=== PATIENT | male | born 1990 | race Caucasian/White ===

== ENCOUNTER → 2020-08-07 08:21 | Outpatient (BNVA) | payer MEDICAID, SELFPAY ==
--- NOTE | 2020-08-07 | FL_ITS ---
EXAMINATION: XR FLUOROSCOPY CLINICAL INFORMATION: Lumbosacral spondylosis with radiculopathy. COMPARISON: MRI dated 06/20/2020. TECHNIQUE: Multiple intraoperative spot images were obtained as part of the lumbar procedure. FLUOROSCOPY TIME: 0.7 minutes. DOSE AREA PRODUCT: 6.7 Gy-cm2 (rdz-centimeter squared). FINDINGS/IMPRESSION: Transitional anatomy is evident at the lumbosacral junction. [place] were placed at the left L4-L5 and L5-S1 foramina. Contrast material is evident at both locations, indicating the site of the nerve blocks/transforaminal injections.
== END ==
PROVIDERS: PCP Internal Medicine; Visit Provider Anesthesiology
DX: M47.27 Other spondylosis with radiculopathy, lumbosacral region (principal)
CPT/HCPCS: 64483; 64484; J3300; Q9967

== ENCOUNTER → 2021-04-17 14:58 | Outpatient (BNVA) | payer MEDICAID, SELFPAY | PROVIDERS: PCP Internal Medicine; Visit Provider Anesthesiology | DX: M47.27 Other spondylosis with radiculopathy, lumbosacral region (principal); M79.18 Myalgia, other site; E66.01 Morbid (severe) obesity due to excess calories | CPT/HCPCS: 99212 ==

== ENCOUNTER 2021-04-24 12:03 | Outpatient (REF) | payer OTHER, MEDICAID, SELFPAY ==
[2021-04-24 14:36] LABS: Alanine Aminotransferase 69 U/L (0-40); Alkaline Phosphatase 64 U/L (39-117); Anion Gap 13 (12-20); Aspartate Amino Transferase 46 U/L (5-37); Bilirubin Total 0.5 mg/dL (0.0-1.0); Blood Urea Nitrogen 15 mg/dL (9-16); Calcium 10.2 mg/dL (8.4-10.2); Carbon Dioxide 27 mmol/L (22-29); Chloride 108 mmol/L (96-108); Cholesterol 204 mg/dL; Estimated Glomerular Filt Rate > 60; Glucose Fasting 118 mg/dL (60-99); HDL Cholesterol 42 mg/dL; LDL Cholesterol Calculated 112 mg/dl; Potassium 4.1 mmol/L (3.3-5.1); Sodium 144 mmol/L (135-145); Total Protein 7.7 g/dL (6.5-8.0); Triglycerides 251 mg/dL
[2021-04-24 15:05] LABS: Vitamin B12 908 pg/mL (200-900)
== END 2021-04-24 12:04 | disposition home or self-care (01) ==
LOC: HO.HMGCLDS 12:03
PROVIDERS: PCP Internal Medicine; Visit Provider Internal Medicine
DX: Z00.00 Encounter for general adult medical examination without abnormal findings (principal); E53.8 Deficiency of other specified B group vitamins; E66.01 Morbid (severe) obesity due to excess calories
CPT/HCPCS: 36415; 80053; 80061; 82607

== ENCOUNTER 2023-01-26 10:37 | Outpatient (REF) | payer BC, MEDICAID, SELFPAY ==
[2023-01-26 13:44] LABS: MANUAL DIFF FLAG NO
[2023-01-26 13:55] LABS: Basophils Percent Auto 0.7 % (0-2); Eosinophils Absolute Auto 0.3 X10*3/uL (0.0-0.4); Eosinophils Percent Auto 4.3 % (0-4); Hematocrit 45.1 % (42.0-52.0); Hemoglobin 15.6 g/dl (14.0-18.0); Imm Gran Abs Auto 0.03 X10*3/uL (0.00-0.03); Imm Gran Pct Auto 0.5 % (0.0-0.4); Lymphocytes Absolute Auto 1.9 X10*3/uL (1.2-4.9); Mean Corpuscular HGB Conc 34.6 g/dl (31.0-36.0); Mean Corpuscular Hemoglobin 29.7 pg (27.0-33.0); Mean Corpuscular Volume 85.7 fL (80.0-98.0); Mean Platelet Volume 10.4 fL (9.4-12.4); Monocytes Absolute Auto 0.4 X10*3/uL (0.1-1.2); Monocytes Percent Auto 7.1 % (2-11); Neutrophils Absolute Auto 3.4 x10*3/uL (2.0-8.3); Neutrophils Percent Auto 56.4 % (45-73); Platelet Count 180 X10*3/uL (160-400); Red Blood Count 5.26 X10*6/uL (4.60-5.80); Red Cell Distribution Width 12.1 % (11.0-16.0); White Blood Count 6.1 X10*3/uL (4.8-10.8)
[2023-01-26 14:09] LABS: Estimated Average Glucose 134 mg/dL; Hemoglobin A1c % 6.3 %
[2023-01-26 14:21] LABS: Alanine Aminotransferase 148 U/L (0-40); Albumin Level 4.4 g/dL (3.5-5.0); Alkaline Phosphatase 70 U/L (39-117); Anion Gap 13 (12-20); Aspartate Amino Transferase 84 U/L (5-37); Bilirubin Total 0.7 mg/dL (0.0-1.0); Blood Urea Nitrogen 12 mg/dL (9-16); Calcium 9.3 mg/dL (8.4-10.2); Carbon Dioxide 28 mmol/L (22-29); Chloride 105 mmol/L (96-108); Cholesterol 205 mg/dL; Estimated Glomerular Filt Rate > 60; Glucose Fasting 112 mg/dL (60-99); HDL Cholesterol 40 mg/dL; LDL Cholesterol Calculated 119 mg/dl; Potassium 4.1 mmol/L (3.3-5.1); Sodium 142 mmol/L (135-145); Total Protein 6.9 g/dL (6.5-8.0); Triglycerides 231 mg/dL
[2023-01-26 14:53] LABS: Folate 8.4 ng/mL (> or = 4.0); Vitamin B12 442 pg/mL (200-900)
[2023-01-26 15:45] LABS: Creatinine Urine 136.25 mg/dL; Microalbum/Creatinine Ratio Ur 98.3 ug/mg cr
== END 2023-01-26 10:38 | disposition home or self-care (01) ==
LOC: HO.HMGCLDS 10:37
PROVIDERS: PCP Internal Medicine; Visit Provider Internal Medicine
DX: Z00.00 Encounter for general adult medical examination without abnormal findings (principal); R73.9 Hyperglycemia, unspecified; E53.8 Deficiency of other specified B group vitamins; K21.9 Gastro-esophageal reflux disease without esophagitis
CPT/HCPCS: 36415; 80053; 80061; 82043; 82607; 82746; 83036; 84443; 85025

== ENCOUNTER → 2023-03-02 13:47 | Outpatient (BNVA) | payer MEDICAID, SELFPAY | PROVIDERS: PCP Internal Medicine; Visit Provider Nurse Practitioner Family | DX: Z12.11 Encounter for screening for malignant neoplasm of colon (principal); K21.9 Gastro-esophageal reflux disease without esophagitis; Z90.49 Acquired absence of other specified parts of digestive tract; Z86.010 Personal history of colon polyps | CPT/HCPCS: 99202 ==

== ENCOUNTER 2023-09-08 10:57 | Outpatient (AMB) | payer OTHER, SELFPAY ==
--- NOTE | 2023-09-08 10:59 | MHC.OFFVIS ---
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 Required: No Accompanied by: Self / Same As Patient Allergies No Known Allergies [No Known Allergies*] Allergy (Verified 09/08/23 11:52) Medication List - Last Reconciled 09/08/23 by CHRISTOPHER Prabhakar- bisacodyl (Dulcolax (bisacodyl)) 10 mg (2 x 5 mg) PO BEDTIME blood sugar diagnostic (Freestyle [employer] Test Strips) test blood sugar twice a day blood-glucose meter (Freestyle [employer] meter) As directed bupropion HCl 75 mg PO QAM clonidine HCl 0.3 mg PO BEDTIME PRN clotrimazole-betamethasone 1-0.05 % 1 appl topical BID 4 weeks cyclobenzaprine 5 mg PO DAILY PRN fluvoxamine 100 mg PO BEDTIME gabapentin 300 mg PO BEDTIME methylphenidate HCl ER mg PO omeprazole 40 mg PO DAILY trazodone 200 mg PO BEDTIME PRN HPI HPI Comments History of Present Illness Details Ildefonso is a very pleasant 33-year-old male patient of Dr. Huerta. He has a past medical history of obesity, restless leg syndrome, chronic pain syndrome, non alcoholic fatty liver, sleep apnea, vitamin-D deficiency, mixed irritable bowel syndrome, current smoker, Asperger's syndrome, pervasive developmental disorder, and GERD. He presents to the office today as a new patient for phimosis. In discussion with the patient today he reports to be doing and feeling well. He reports having followed-up with PCP regarding ongoing issues with phimosis at which time recommendations were made for urology referral for further assess evaluation. In assessment of the patient today patient is circumcised. Penis appears buried however prepuce is able to be retracted over penile gland without difficulty and or pain. No drainage and or open areas noted. Discussed importance of weight loss to assist with phimosis given patient with a history of circumcision as a baby. In office urinalysis results reviewed with the patient today. Microscopic hematuria and proteinuria noted. These results were reviewed with the patient today. Discussed at length potential causes of proteinuria as well as microscopic hematuria. When asked patient does report a longstanding smoking history. He denies any known previous workplace chemical exposure. He reports smoking approximately 10 cigarettes per day. He otherwise denies any bothersome urinary issues or concerns. He denies urinary urgency, urinary frequency, incontinence, nocturia, hematuria, dysuria, foul smelling urine, changes to urinary stream, flank pain, fever, and or chills. He is happy with his current voiding parameters. [facility] Medical History Annual physical exam Asperger syndrome B12 deficiency Body mass index (BMI) 20.0-20.9, adult Cholecystectomy planned Chronic pain syndrome Current smoker Disc degeneration, lumbar Elevated cholesterol Fatty liver disease, nonalcoholic Gastro-esophageal reflux disease without esophagitis Lumbosacral spondylosis with radiculopathy Mixed irritable bowel syndrome Morbid (severe) obesity due to excess calories Morbid obesity due to excess calories Myofascial pain syndrome PDD (pervasive developmental disorder) Restless leg syndrome Skin tag of perineum in male Sleep apnea, unspecified Vitamin D deficiency, unspecified Surgical History History of esophagogastroduodenoscopy (EGD) Hx of cholecystectomy Family History Father HTN (hypertension) Diabetes mellitus Mental health disorder Mother Breast cancer Maternal Grandmother Uterine cancer Social History Household Members 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 [facility] Patient Tobacco Use Status: Current everyday Tobacco user Tobacco use type: Cigarette Cigarettes Per Day: 10 e-Cigarette/Vaping Use: Never Used Current occupational status: employed Cognitive needs: No Hearing needs: No Vision needs: Yes Review of Systems Const Reports as per HPI Eyes Reports no additional complaints ENT Reports no additional complaints Card Reports as per HPI Resp Reports as per HPI GI Reports as per HPI Reports as per HPI Musc Reports no additional complaints Neuro Reports as per HPI Psych Reports as per HPI Endo Reports as per HPI Merrick/Lymph Reports no additional complaints Aller/Immun Reports no additional complaints Physical Exam Const General: cooperative, comfortable, no acute distress, well developed, alert and awake Nutritional Appearance: obese Orientation/consciousness: patient oriented x3 Limitations: no limitations HEENT Head: Yes normal to inspection, Yes normocephalic and Yes atraumatic Ears: hearing grossly normal bilaterally Eyes General: appearance normal, both eyes and all related structures Neck Neck: Yes normal visual inspection and Yes trachea midline Chest Chest palpation & inspection: normal inspection of the chest Resp Effort & Inspection: normal respiratory effort and able to speak in complete sentences Cardio Rate: regular rate GI Inspection: Yes normal to inspection General: Yes no CVA tenderness Penis: circumcised and phimosis Meatus: meatus normal Scrotum: scrotum normal Testes: Testes normal Back/Spine/Pelvis Back: no CVA tenderness Skin General skin exam: no rashes or lesions noted Neuro General: patient oriented x3 Extrem General: Yes normal to inspection Psych Appearance: grossly normal and well kempt Mental Status: mental status grossly normal Speech and movement: Normal speech and movement present and Clear speech present Affect: normal affect Attitude: cooperative Thought process: Normal thought process present Thought content: Normal thought content present Insight: Fair insight present (Psych) Judgement: Fair judgement present (Psych) Results AMB Urinalysis, Automated UA Leukoctes 0 Scooter/uL Last Edit by Schoology on 09/08/23 11:27 UA Nitrite Negative Last Edit by Schoology on 09/08/23 11:27 UA Urobilinogen 0.2 mg/dL Last Edit by Schoology on 09/08/23 11:27 UA Protein 300 mg/dL Last Edit by Schoology on 09/08/23 11:27 UA pH 5.5 Last Edit by Schoology on 09/08/23 11:27 UA Blood 10 Leonidas/uL Last Edit by Schoology on 09/08/23 11:27 UA Specific [place] 1.030 Last Edit by Schoology on 09/08/23 11:27 UA Ketone Negative Last Edit by Schoology on 09/08/23 11:27 UA Bilirubin 0 mg/dL Last Edit by Schoology on 09/08/23 11:27 UA Glucose 0 mg/dL Last Edit by Schoology on 09/08/23 11:27 Results Reviewed Results Reviewed: Laboratory Last Values Urine pH (Auto) 5.5 09/08/23 11:24 Specific [place] (Auto) 1.030 09/08/23 11:24 Urine Protein (Auto) 300 mg/dL 09/08/23 11:24 Glucose (UA)(Auto) 0 mg/dL 09/08/23 11:24 Urine Ketones (Auto) Negative 09/08/23 11:24 Urine Blood (Auto) 10 Leonidas/uL 09/08/23 11:24 Urine Nitrite (Auto) Negative 09/08/23 11:24 Urine Bilirubin (Auto) 0 mg/dL 09/08/23 11:24 Urine Urobilinogen (Auto) 0.2 mg/dL 09/08/23 11:24 Leukocyte Esterase (Auto) 0 Scooter/uL 09/08/23 11:24 Assessment & Plan Assessment & Plan (1) Proteinuria: Code(s): R80.9 - Proteinuria, unspecified (2) Microscopic hematuria: Code(s): R31.29 - Other microscopic hematuria (3) Phimosis of penis: Code(s): N47.1 - Phimosis Plan In office urinalysis results reviewed with the patient today; as noted above; will send for urine cytology. Discussed at length potential causes of proteinuria as well as microscopic hematuria. Inner prepuce is able to slide of penile gland. Discussed, educated, and stressed the importance of drinking plenty of water daily. Will refer to Nephrology for further assessment evaluation of proteinuria Discussed and stressed the importance of weight loss to assist with phimosis as well as overall health and well-being. Discussed and stressed the importance of limiting/quitting smoking for overall health and well-being. Start clotrimazole-betamethasone as discussed and prescribed. Discussed further microscopic hematuria workup Follow-up in 3 months; or sooner with any issues, concerns, and or questions. Orders: Orders AMB Urinalysis Automated Today Z13.9 - Encounter for screening, unspecified Referrals Nephrology Referral R80.9 - Proteinuria, unspecified Medications: New clotrimazole-betamethasone 1-0.05 % Apply thin coat 2 times per day 1 appl topical BID 4 weeks 45 grams 1RF N48.1 - Balanitis Discontinued ketoconazole 2% Discontinued Reason: Doctor's Order 1 appl topical DAILY 30 grams 1RF Patient Instructions: The patient had an opportunity to ask questions regarding the treatment plan. All questions were answered. Physical exam, labs, and imaging were discussed and reviewed in detail. As well as risks, benefits, and discussion of treatment choices. No major barriers to understanding were identified. The patient expressed understanding and agreement with the above treatment plan. The patient was made aware they should contact our office by phone for worsening of their current condition, the appearance of new symptoms, or with any questions or concerns. Compliance is encouraged with any medications and follow up testing that is ordered. It is a privilege to be allowed the opportunity to participate in? your urological care.? Again, if you have any questions or concerns If you have any questions or concerns please do not hesitate to contact me. The office is [phone]. This note is constructed using voice recognition software. While every effort has been made to ensure accuracy construction laborer errors may have been included. Yours sincerely, JOSE ANTONIO Prabhakra Coding Level of Care Code New Pt Level 4 (28984) Diagnoses Proteinuria R80.9 Microscopic hematuria R31.29 Phimosis of penis N47.1
== END 2023-09-08 11:38 | disposition home or self-care (01) ==
PROVIDERS: PCP Internal Medicine; Visit Provider Nurse Practitioner Family
DX: R80.9 Proteinuria, unspecified (principal); R31.29 Other microscopic hematuria; N47.1 Phimosis; Z13.9 Encounter for screening, unspecified
CPT/HCPCS: 99204

== ENCOUNTER 2023-09-08 10:57 | Outpatient (REF) | payer OTHER, SELFPAY ==
[2023-09-08 16:58] LABS: Urine Cytology See Pathology rpt
== END 2023-09-08 10:58 | disposition home or self-care (01) ==
LOC: HO.LNP 10:57
PROVIDERS: PCP Internal Medicine; Visit Provider Nurse Practitioner Family
DX: R31.29 Other microscopic hematuria (principal); R80.9 Proteinuria, unspecified; N47.1 Phimosis
CPT/HCPCS: 81003; 88112

== ENCOUNTER 2023-09-17 14:05 | Outpatient (AMB) | payer OTHER, SELFPAY ==
[2023-09-17 14:15] VITALS: BP 130/70; PULSE 102; O2SAT 94; BMI 54.0
--- NOTE | 2023-09-17 14:15 | HO.NEPHOV_ITS ---
HPI HPI Comments History of Present Illness Details 31-year-old man with history of obesity has been referred for evaluation of proteinuria. His and normal renal function. No history of hypertension. [facility] Medical History Annual physical exam Asperger syndrome B12 deficiency Body mass index (BMI) 20.0-20.9, adult Cholecystectomy planned Chronic pain syndrome Current smoker Disc degeneration, lumbar Elevated cholesterol Fatty liver disease, nonalcoholic Gastro-esophageal reflux disease without esophagitis Lumbosacral spondylosis with radiculopathy Mixed irritable bowel syndrome Morbid (severe) obesity due to excess calories Morbid obesity due to excess calories Myofascial pain syndrome PDD (pervasive developmental disorder) Restless leg syndrome Skin tag of perineum in male Sleep apnea, unspecified Vitamin D deficiency, unspecified Surgical History Hx of cholecystectomy History of esophagogastroduodenoscopy (EGD) Family History Father HTN (hypertension) Diabetes mellitus Mental health disorder Mother Breast cancer Maternal Grandmother Uterine cancer Social History 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 Housing: Condominium Patient Tobacco Use Status: Current everyday Tobacco user Tobacco use type: Cigarette Cigarettes Per Day: 5 Years Smoked: 10 e-Cigarette/Vaping Use: Never Used Current occupational status: employed Cognitive needs: No Hearing needs: No Vision needs: Yes Vital Signs 09/17/23 14:15 Height 5 ft 8.5 in Weight 360 lb 2 oz BMI 54.0 BP 130/70 Pulse 102 H Pulse Source Pulse Oximeter Pulse Oximetry (%) 94 Physical Exam Vital Signs: Last Vital Signs Pulse 102 H 09/17/23 14:15 BP 130/70 09/17/23 14:15 Pulse Ox 94 09/17/23 14:15 BMI result Body Mass Index 54.0 Const General: comfortable Nutritional Appearance: well nourished Orientation/consciousness: patient oriented x3 HEENT Head: No normal to inspection Mouth: moist mucous membranes Eyes General: appearance normal, both eyes and all related structures Visual Schmidt: normal visual schmidt by confrontation Neck Neck: Yes supple and Yes no JVD Resp Effort & Inspection: normal respiratory effort and respiratory effort not decreased Auscultation: clear to auscultation bilaterally, no rales and rub present Cardio Jugular venous distension: no JVD Palpation: no palpable S3 and no palpable S4 Heart sounds: no rubs GI Inspection: Yes normal to inspection Palpation (GI): Soft to palpation and nontender Percussion: No Fluid wave present Auscultation: normal bowel sounds General: Yes no CVA tenderness Back/Spine/Pelvis Back: no CVA tenderness Skin General skin exam: no rashes or lesions noted Neuro General: patient oriented x3 Extrem General: Yes no pedal edema and No clubbing Results Reviewed Results Reviewed: Results reviewed. In December of 2022 urine microalbumin creatinine ratio was 98 Serum creatinine 0.67 Assessment & Plan Assessment & Plan (1) Proteinuria: Code(s): R80.9 - Proteinuria, unspecified Plan: 33 year old man with obesity and normal renal function has microalbuminuria. Microalbumin is most likely due to underlying obesity. Urine sediments appeared bland therefore glomerulonephritis seems unlikely. Next episode quantify the proteinuria. Check urine protein creatinine ratio Once this is done we can start him on ERIC-inhibitor or ARB for renal protection. I have discussed importance of weight loss to slow the progression disease. Will continue monitor renal function and maintain blood pressure less than 130/80 mmHg. All his questions were answered Orders: Orders Electrolytes 09/21/23 R80.9 - Proteinuria, unspecified Blood Urea Nitrogen 09/21/23 R80.9 - Proteinuria, unspecified Total Protein Urine Random 09/21/23 R80.9 - Proteinuria, unspecified UA and rflx microscopic 09/21/23 R80.9 - Proteinuria, unspecified Creatinine Urine 09/21/23 R80.9 - Proteinuria, unspecified Creatinine 09/21/23 R80.9 - Proteinuria, unspecified Calcium 09/21/23 R80.9 - Proteinuria, unspecified Coding Level of Care Code New Pt Level 4 (16443) Diagnoses Proteinuria R80.9
== END 2023-09-17 14:33 | disposition home or self-care (01) ==
PROVIDERS: PCP Internal Medicine; Visit Provider Internal Medicine Hypertension Specialist
DX: R80.9 Proteinuria, unspecified (principal)
CPT/HCPCS: 99204

== ENCOUNTER → 2023-09-17 14:05 | Outpatient (BNVA) | payer OTHER, SELFPAY | PROVIDERS: PCP Internal Medicine; Visit Provider Internal Medicine Hypertension Specialist ==

== ENCOUNTER 2023-09-21 13:46 | Outpatient (REF) | payer OTHER, SELFPAY ==
[2023-09-21 16:24] LABS: Anion Gap 10 (12-20); Blood Urea Nitrogen 10 mg/dL (9-16); Calcium 9.2 mg/dL (8.4-10.2); Carbon Dioxide 31 mmol/L (22-29); Chloride 103 mmol/L (96-108); Estimated Glomerular Filt Rate > 60; Sodium 140 mmol/L (135-145)
[2023-09-21 16:29] LABS: Appearance Urine Clear; Color Urine Yellow; Glucose Urine UA Negative (Negative); Leukocyte Esterase Urine Trace (Negative); Nitrite Urine Negative (Negative); PH 5.5 (5.0-9.0); UMIC TRIGGER UA YES; Urine Blood Negative (Negative); Urine Ketones Negative (Negative); Urine Protein 100 (2+) mg/dL (Neg-Trace)
[2023-09-21 16:35] LABS: Bacteria Urine 1+ (None Seen); Hyaline Casts Urine 0-2 /LPF (0-2); RBC Urine 0-2 /HPF (0-2)
[2023-09-21 16:47] LABS: Creatinine Urine 166.03 mg/dL; Total Protein Urine Random 127 mg/dL (<12)
[2023-09-22 04:17] LABS: HBS Num1 18.34 mIU/mL (0-7.99); HBc Num1 0.19 S/CO (0.00-0.79); Hepatitis B Core Antibody Nonreactive (Nonreactive); Hepatitis B Surface Antigen Negative (Negative); ~HepC Num1 0.15 S/CO (0.00-0.79); ~Hepatitis B Surface Antibody REACTIVE (Nonreactive); ~Hepatitis C Antibody Nonreactive (Nonreactive)
== END 2023-09-21 13:47 | disposition home or self-care (01) ==
LOC: HO.HMGCLDS 13:46
PROVIDERS: PCP Internal Medicine; Visit Provider Internal Medicine Hypertension Specialist
DX: R80.9 Proteinuria, unspecified (principal); R73.9 Hyperglycemia, unspecified; E78.2 Mixed hyperlipidemia; R79.89 Other specified abnormal findings of blood chemistry
CPT/HCPCS: 36415; 80051; 81001; 82310; 82565; 82570; 84156; 84520; 86704; 86706; 86803; 87340

== ENCOUNTER 2023-09-23 09:55 | Day surgery (SDC) | payer OTHER, SELFPAY ==
[2023-09-21 14:06] VITALS: BMI 53.9
--- NOTE | 2023-09-22 10:15 | P.CONAN_ITS ---
Documented by User: Jacklyn Chapa NP 09/22/23 10:17 HPI - Anesthesia Eval Consult details Narrative: 33yo M for Upper Endoscopy and Colonoscopy [facility] Active Problems Active Problems: All Active Problems (Updated 09/08/23 @ 12:09 by Farida Morton [facility]) Microscopic hematuria (Acute) Proteinuria (Acute) Phimosis of penis (Acute) LFTs abnormal (Acute) Elevated triglycerides with high cholesterol (Acute) Hyperglycemia (Acute) GERD (gastroesophageal reflux disease) (Acute) B12 deficiency (Acute) Annual physical exam (Acute) Morbid obesity due to excess calories (Acute) Myofascial pain syndrome (Acute) Paraspinal muscle spasm (Acute) Lumbosacral spondylosis with radiculopathy (Acute) Past Medical History Medical History Annual physical exam Asperger syndrome B12 deficiency Body mass index (BMI) 20.0-20.9, adult Cholecystectomy planned Chronic pain syndrome Current smoker Disc degeneration, lumbar Elevated cholesterol Fatty liver disease, nonalcoholic Gastro-esophageal reflux disease without esophagitis Lumbosacral spondylosis with radiculopathy Mixed irritable bowel syndrome Morbid (severe) obesity due to excess calories Morbid obesity due to excess calories Myofascial pain syndrome PDD (pervasive developmental disorder) Restless leg syndrome Skin tag of perineum in male Sleep apnea, unspecified Vitamin D deficiency, unspecified Family History Family History Father HTN (hypertension) Diabetes mellitus Mental health disorder Mother Breast cancer Maternal Grandmother Uterine cancer Surgical History Surgical History Hx of cholecystectomy History of esophagogastroduodenoscopy (EGD) Social History 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 Housing: Condominium Patient Tobacco Use Status: Current everyday Tobacco user Tobacco use type: Cigarette Cigarettes Per Day: 5 Years Smoked: 10 e-Cigarette/Vaping Use: Never Used Use of substances other than those prescribed or required for medical reasons: Yes Substance Use Frequency: Daily Are you DNR?: No Advance Directives: No Advance Directives Information Provided: Yes Current occupational status: employed Cognitive needs: No Hearing needs: No Vision needs: Yes Meds Allergies Allergy/AdvReac Type Severity Reaction Status Date / Time No Known Allergies Allergy Verified 09/17/23 14:15 [No Known Allergies*] Home Medications Medication Instructions Recorded Confirmed Last Taken Type clonidine HCl 0.3 mg tablet 0.3 mg PO BEDTIME PRN insomnia 08/04/20 09/21/23 Unknown History methylphenidate HCl 20 mg 20 mg PO QAM 08/04/20 09/21/23 Unknown History tablet,extended release trazodone 100 mg tablet 200 mg PO BEDTIME PRN insomnia 08/04/20 09/21/23 Unknown History omeprazole 20 mg capsule,delayed 40 mg PO DAILY 12/31/22 09/21/23 Unknown History release bupropion HCl 75 mg tablet 75 mg PO QAM 09/08/23 09/21/23 Unknown History fluvoxamine 100 mg tablet 100 mg PO BEDTIME 09/08/23 09/21/23 Unknown History Exam Height,Weight and Vital Signs: Height 5 ft 8.5 in Weight 163.293 kg Pertinent Lab Results Pertinent Lab Results: Laboratory Tests 01/26/23 09/21/23 10:53 13:59 WBC 6.1 Hgb 15.6 Hct 45.1 Plt Count 180 Sodium 140 Potassium 4.0 Chloride 103 Carbon Dioxide 31 H BUN 10 Creatinine 0.79 Assessment and Plan Assessment Anesthesia Assessment: Chart Reviewed Documented by User: Kendall Lisa MD 09/23/23 10:32 [facility] Past Medical History Medical History Annual physical exam Asperger syndrome B12 deficiency Body mass index (BMI) 20.0-20.9, adult Cholecystectomy planned Chronic pain syndrome Current smoker Disc degeneration, lumbar Elevated cholesterol Fatty liver disease, nonalcoholic Gastro-esophageal reflux disease without esophagitis Lumbosacral spondylosis with radiculopathy Mixed irritable bowel syndrome Morbid (severe) obesity due to excess calories Morbid obesity due to excess calories Myofascial pain syndrome PDD (pervasive developmental disorder) Restless leg syndrome Skin tag of perineum in male Sleep apnea, unspecified Vitamin D deficiency, unspecified Family History Family History Father HTN (hypertension) Diabetes mellitus Mental health disorder Mother Breast cancer Maternal Grandmother Uterine cancer Family history of problems with anesthesia: No Surgical History Surgical History Hx of cholecystectomy History of esophagogastroduodenoscopy (EGD) History of Problems with Anesthesia: No Social History 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 Housing: [facility] Patient Tobacco Use Status: Current everyday Tobacco user Tobacco use type: Cigarette Cigarettes Per Day: 5 Years Smoked: 10 e-Cigarette/Vaping Use: Never Used Use of substances other than those prescribed or required for medical reasons: Yes Substance Use Frequency: Daily Are you DNR?: No Advance Directives: No Advance Directives Information Provided: Yes Current occupational status: employed Cognitive needs: No Hearing needs: No Vision needs: Yes Meds Allergies Allergy/AdvReac Type Severity Reaction Status Date / Time No Known Allergies Allergy Verified 09/17/23 14:15 [No Known Allergies*] Home Medications Medication Instructions Recorded Confirmed Last Taken Type clonidine HCl 0.3 mg tablet 0.3 mg PO BEDTIME PRN insomnia 08/04/20 09/21/23 Unknown History methylphenidate HCl 20 mg 20 mg PO QAM 08/04/20 09/21/23 Unknown History tablet,extended release trazodone 100 mg tablet 200 mg PO BEDTIME PRN insomnia 08/04/20 09/21/23 Unknown History omeprazole 20 mg capsule,delayed 40 mg PO DAILY 12/31/22 09/21/23 Unknown History release bupropion HCl 75 mg tablet 75 mg PO QAM 09/08/23 09/21/23 Unknown History fluvoxamine 100 mg tablet 100 mg PO BEDTIME 09/08/23 09/21/23 Unknown History Exam Airway Mallampati Class: IV Neck ROM: Limited Heart: rrr Lungs: cta Assessment and Plan Assessment Anesthesia Assessment: Anesthesia Plan Discussed Final Anesthetic Review Family History of Problems with Anesthesia: No History of Problems with Anesthesia: No NPO: Yes ASA Class: IV Final Preanesthetic Review: No Changes in Pt Med Stat, Meds/Allgs Chart Reviewed, Consent Obtained/Reviewed and Anes Risks/Benef Reviewed Patient Risk: High Procedure Risk: Intermediate Anesthetic Plan Anesthetic Plan: GA and Agree w/ Assess. and Plan Disposition: Standard PACU
[2023-09-23 10:06] VITALS: BMI 53.8
--- NOTE | 2023-09-23 10:16 | MHC.SHP ---
Pre-Procedural Eval Section A Date of Service: 09/23/23 Section B Chief Complaint: Gastro-esophageal reflux disease without esophagit Details of Present Illness: colon screening Relevant Family History (Specify if Yes): No Relevant Social History: Tobacco Use Present Medications: see Short Stay Collaborative assessment Medical History: Significant History (Asperger syndrome B12 deficiency Body mass index (BMI) 20.0-20.9, adult Cholecystectomy planned Chronic pain syndrome Current smoker Disc degeneration, lumbar Elevated cholesterol Fatty liver disease, nonalcoholic Gastro-esophageal reflux disease without esophagitis Lumbosacral spondylosis with radi) History of Previous Operations: Relevant previous surgery/procedure and date(s) (Hx of cholecystectomy History of esophagogastroduodenoscopy (EGD)) Allergies: Allergies Allergy/AdvReac Type Severity Reaction Status Date / Time No Known Allergies Allergy Verified 09/17/23 14:15 [No Known Allergies*] Review of Systems Sugical H&P ROS: Negative: Constitution, Cardiovascular, Respiratory, Neurological, Psychiatric, Hem-Onc, Allergic/Immunologic, Gastrointestinal, Genitourinary, Musculoskeletal, Integumentary, Endocrine and Eyes/Ears/Nose/Throat Exam Surgical H&P Exam: Normal: HEENT, Normal: Heart, Normal: Lungs, Normal: Extremities, Normal: Abdomen, Normal: Skin and Normal: Neurological Exam Comment: morbid obesity Plan Diagnosis/Plan: Unchanged I have reviewed the history and physical and performed a pertinent physical examination on my patient. No changes have occurred unless specified. Time Spent With Patient Time: Total time managing care of this patient today ____ minutes.
--- NOTE | 2023-09-23 10:19 | P.OP_ITS ---
Operative Note Operative Note Date of Service: 09/23/23 Narrative: Operative Information Procedure Description: EGD, Colonoscopy Indication: GERD, hx of polyps Anesthesia: GA- patient intubated FLEXIBLE TRANSORAL UPPER GASTROINTESTINAL ENDOSCOPY AND COLONOSCOPY PROCEDURE NOTE UPPER ENDOSCOPY Consent: Indications for the procedure and potential complications of bleeding, perforation, reaction to medications and missed diagnosis were discussed with the patient and informed consent was obtained. Instrument: Olympus GIF H 190 J mid size upper endoscope Monitoring: Vital signs and clinical assessment, continuous EKG monitoring, Pulse oximetry, Carbon Dioxide monitoring and blood pressure monitoring were done throughout the procedure. Procedure: The patient was placed in the left lateral decubitis position and pre-procedure medications were administered and a bite block was placed. The endoscope was inserted into the mouth and advanced under direct vision to the third part of duodenum. A careful inspection was made as the upper endoscope was withdrawn including a retroflexed examination of the proximal stomach; Findings and interventions are described below. Findings: Larynx:normal Esophagus: GE junction at 40 cm, diaphragm hiatus at 40 cm, normal mucosa Stomach: Patchy erythema. Biopsies were obtained. Grade 2 flap valve on retroflexed examination of the cardia. Duodenum: Patchy erythema in bulb, bx taken Intervention: Biopsies as noted above COLONOSCOPY Instrument: Olympus variable stiffness pediatric scope 190L Colonoscopy Monitoring: Vital signs and clinical assessment, continuous EKG monitoring, Pulse oximetry, Carbon Dioxide monitoring and blood pressure monitoring were done throughout the procedure. Colon withdrawal time was 8 minutes. Procedure: The patient was placed in the left lateral decubitis position and pre-procedure medications were administered. After a digital rectal examination of the ano-rectum, the video colonoscope was inserted into the rectum and advanced through the colon to the cecum/TI. The colonoscope was slowly withdrawn in a retrograde panoramic fashion and the colon mucosa was carefully examined including a retroflexed view of the rectum. Findings and interventions are described below. Procedure Difficulty:moderate Findings: Terminal Ileum-not intubated Cecum:normal Ascending Colon: normal Transverse Colon -normal Descending Colon:normal Sigmoid Colon: 4-6 mm sessile polyp removed with cold biopsy forceps Rectum: Retroflexion with small internal hemorrhoids, grade I, 4-5 mm sessile po lyp removed with cold forceps Anorectum - normal Colon preparation: Talmage Bowel Preparation Scale Right colon; 2 Transverse colon: 2 Left colon; 2 (0 = Unprepared colon segment with mucosa not seen due to solid stool that cannot be cleared. 1 = Portion of mucosa of the colon segment seen, but other areas of the colon segment not well seen due to staining, residual stool and/or opaque liquid. 2 = Minor amount of residual staining, small fragments of stool and/or opaque liquid, but mucosa of colon segment seen well. 3 = Entire mucosa of colon segment seen well with no residual staining, small fragments of stool or opaque liquid) Impression and Post Procedure Diagnosis: Endoscopy Findings: gastritis duodenitis Colonoscopy Findings: polyps internal hemorrhoids Plan: Await Pathology results Repeat Colonoscopy in 5-7 years due to hx of polyps or earlier if clinically indicated High fiber diet leaflet avoid straining at stool, epsom salts and sitz bath, anusol supps or cream if h pylori pos then treat Above findings were reviewed with the patient and relevant handouts were provided if indicated.
[2023-09-23] MEDS: Lactated Ringers 1,000 ML 100 ML IVCONT (10:32)
[2023-09-23 10:33] VITALS: BP 120/80; PULSE 94; RESP 20; TEMP 36.8; O2SAT 96
[2023-09-23 11:57] VITALS: BP 119/64; PULSE 103; RESP 20; TEMP 36.4; O2SAT 92
[2023-09-23 12:02] VITALS: BP 113/69; PULSE 115; RESP 22; O2SAT 92
[2023-09-23 12:07] VITALS: BP 103/58; PULSE 103; RESP 22; O2SAT 92
[2023-09-23 12:12] VITALS: BP 112/62; PULSE 100; RESP 22; O2SAT 91
[2023-09-23 12:27] VITALS: BP 125/59; PULSE 71; RESP 16; TEMP 36.8; O2SAT 94
== END 2023-09-23 12:59 | disposition home or self-care (01) ==
PROVIDERS: PCP Internal Medicine; Visit Provider Internal Medicine Gastroenterology
PROC: (CPT 45380; principal; 2023-09-23 11:30)
DX: Z12.11 Encounter for screening for malignant neoplasm of colon (principal); Z86.010 Personal history of colon polyps; K63.5 Polyp of colon; K62.1 Rectal polyp; K64.0 First degree hemorrhoids; K21.9 Gastro-esophageal reflux disease without esophagitis; K29.50 Unspecified chronic gastritis without bleeding; K29.80 Duodenitis without bleeding; K44.9 Diaphragmatic hernia without obstruction or gangrene; K76.0 Fatty (change of) liver, not elsewhere classified; F84.5 Asperger's syndrome; E53.8 Deficiency of other specified B group vitamins; E78.00 Pure hypercholesterolemia, unspecified; G89.4 Chronic pain syndrome; M47.27 Other spondylosis with radiculopathy, lumbosacral region; M51.36 Other intervertebral disc degeneration, lumbar region; Z79.899 Other long term (current) drug therapy; F17.210 Nicotine dependence, cigarettes, uncomplicated; Z90.49 Acquired absence of other specified parts of digestive tract
CPT/HCPCS: 45380; 43239; 88305; 88342; J0330; J1805; J2704

== ENCOUNTER → 2023-09-23 09:55 | Outpatient (BNV) | payer OTHER, SELFPAY | PROVIDERS: PCP Internal Medicine; Visit Provider Internal Medicine Gastroenterology | DX: Z12.11 Encounter for screening for malignant neoplasm of colon (principal); Z86.010 Personal history of colon polyps; K21.9 Gastro-esophageal reflux disease without esophagitis; D12.5 Benign neoplasm of sigmoid colon; D12.8 Benign neoplasm of rectum; K64.0 First degree hemorrhoids; K29.90 Gastroduodenitis, unspecified, without bleeding | CPT/HCPCS: 43239; 45380 ==

== ENCOUNTER 2023-10-08 14:51 | Outpatient (AMB) | payer OTHER, SELFPAY ==
--- NOTE | 2023-10-08 14:56 | HO.NEPHOV_ITS ---
HPI HPI Comments History of Present Illness Details 31-year-old man with history of obesity has been referred for evaluation of proteinuria. His and normal renal function. No history of hypertension. 10/08/23 Here for follow up NO new issues [facility] Medical History Annual physical exam Morbid obesity due to excess calories Myofascial pain syndrome Cholecystectomy planned Disc degeneration, lumbar Restless leg syndrome Chronic pain syndrome Lumbosacral spondylosis with radiculopathy Skin tag of perineum in male Fatty liver disease, nonalcoholic Sleep apnea, unspecified Vitamin D deficiency, unspecified Mixed irritable bowel syndrome B12 deficiency Elevated cholesterol Current smoker Asperger syndrome Body mass index (BMI) 20.0-20.9, adult PDD (pervasive developmental disorder) Morbid (severe) obesity due to excess calories Gastro-esophageal reflux disease without esophagitis Surgical History Hx of cholecystectomy History of esophagogastroduodenoscopy (EGD) Family History Father HTN (hypertension) Diabetes mellitus Mental health disorder Mother Breast cancer Maternal Grandmother Uterine cancer Social History Household Members Other:: 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 [facility] Patient Tobacco Use Status: Current everyday Tobacco user Tobacco use type: Cigarette Cigarettes Per Day: 5 Years Smoked: 10 e-Cigarette/Vaping Use: Never Used Current occupational status: employed Cognitive needs: No Hearing needs: No Vision needs: Yes Vital Signs 10/08/23 14:57 Height 5 ft 8 in Weight 367 lb BMI 55.8 BP 134/82 Blood Pressure Location Lt brachial Position Sitting Pulse 105 H Pulse Source Pulse Oximeter Pulse Oximetry (%) 98 Oxygen Delivery Method Room Air Physical Exam Vital Signs: Last Vital Signs Pulse 105 H 10/08/23 14:57 BP 134/82 10/08/23 14:57 Pulse Ox 98 10/08/23 14:57 Oxygen Delivery Method Room Air 10/08/23 14:57 BMI result Body Mass Index 55.8 Const General: comfortable Nutritional Appearance: well nourished and obese Orientation/consciousness: patient oriented x3 HEENT Head: No normal to inspection Mouth: moist mucous membranes Neck Neck: Yes supple and Yes no JVD Resp Auscultation: clear to auscultation bilaterally, no rales and rub present Cardio Jugular venous distension: no JVD Palpation: no palpable S3 and no palpable S4 Heart sounds: no rubs GI Palpation (GI): Soft to palpation and nontender Percussion: No Fluid wave present General: Yes no CVA tenderness Back/Spine/Pelvis Back: no CVA tenderness Skin General skin exam: no rashes or lesions noted Neuro General: patient oriented x3 Extrem General: Yes no pedal edema and No clubbing Assessment & Plan Assessment & Plan (1) Proteinuria: Code(s): R80.9 - Proteinuria, unspecified Plan: 33 year old man with obesity and normal renal function has Proteinuria Proteinuria is most likely due to underlying obesity. Urine sediments appeared bland therefore glomerulonephritis seems unlikely. urine protein creatinine ratio was 0.76 start him on ERIC-inhibitor for renal protection. Addede LIsinopril 5 mg QD ; Possibe side effects explained I have discussed importance of weight loss to slow the progression disease. Offered to refer to weight management clinic. He wants to think about it ( Tried it once a while ago and did not work for him) Will continue monitor renal function and maintain blood pressure less than 130/80 mmHg. All his questions were answered Orders: Orders Electrolytes 3 Months R80.9 - Proteinuria, unspecified Creatinine 3 Months R80.9 - Proteinuria, unspecified Creatinine Urine 3 Months R80.9 - Proteinuria, unspecified Total Protein Urine Random 3 Months R80.9 - Proteinuria, unspecified Blood Urea Nitrogen 3 Months R80.9 - Proteinuria, unspecified Calcium 3 Months R80.9 - Proteinuria, unspecified UA and rflx microscopic 3 Months R80.9 - Proteinuria, unspecified Medications: New lisinopril 5 mg PO DAILY 30 tabs 3RF Coding Level of Care Code Est Pt Level 3 (86247) Diagnoses Proteinuria R80.9 Results Reviewed Results Reviewed: U PCR : 0.76 Nephrology Results: Sodium 140 mmol/L (135-145) 09/21/23 Potassium 4.0 mmol/L (3.3-5.1) 09/21/23 Chloride 103 mmol/L (96-108) 09/21/23 Carbon Dioxide 31 mmol/L (22-29) H 09/21/23 BUN 10 mg/dL (9-16) 09/21/23 Creatinine 0.79 mg/dL (0.5-1.4) 09/21/23 Calcium 9.2 mg/dL (8.4-10.2) 09/21/23 Urine Protein 100 (2+) mg/dL (Neg-Trace) H 09/21/23 Urine Creatinine 166.03 mg/dL 09/21/23
[2023-10-08 14:57] VITALS: BP 134/82; PULSE 105; O2SAT 98; BMI 55.8
== END 2023-10-08 15:13 | disposition home or self-care (01) ==
PROVIDERS: PCP Internal Medicine; Visit Provider Internal Medicine Hypertension Specialist
DX: R80.9 Proteinuria, unspecified (principal)
CPT/HCPCS: 99213

== ENCOUNTER → 2023-10-08 14:51 | Outpatient (BNVA) | payer OTHER, SELFPAY | PROVIDERS: PCP Internal Medicine; Visit Provider Internal Medicine Hypertension Specialist ==

== ENCOUNTER 2024-01-29 10:59 | Outpatient (AMB) | payer OTHER, SELFPAY ==
--- OUTSIDE RECORDS SUMMARY | 2024-01-29 11:00 | XMS_ITS | Continuity of Care Document ---
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 Role Phone Not on Staff, PCP Primary Care Physician Unavail able Encounter [facility] NBR [id number] Date(s): 12/12/22 - 12/12/[address] [address]- Discharge Disposition: A-D/C Home Attending Physician: Thien CHAND, Neo Sparrow Admitting Physician: Neo Neumann MD Referring Physician: Not on Staff, Referring MD Allergies, Adverse Reactions, Alerts No Known Allergies Immunizations Given and Recorded Vaccine Date Status Refusal Reason influenza virus vaccine, inactivated 07/04/15 Deion rded influenza virus vaccine, inactivated 1 07/23/13 Re corded influenza virus vaccine, inactivated 2 08/04/12 Gi arnol influenza virus vaccine, inactivated 3 08/07/11 Gi arnol influenza virus vaccine, inactivated 4 06/25/10 Gi arnol Afluria (oldterm) 07/19/14 Recorded tetanus-diphtheria toxoids (Td) 01/30/14 Given Influenza Virus Vaccine (oldterm) 5 09/29/08 Given Meningococcal Conjugate Vaccine 6 02/08/07 Given 1Result Comment: [08/01/2013] Given at [place], [place] 2Admin Note: Given at [facility] (Only info given documented.) 3Admin Note: given at [facility] 4Admin Note: Fluvirin multidose vial 2009- 5ml Given at [facility]. 5Admin Note: info given 6Admin Note: Menactra Medications albuterol CFC free 90 mcg/inh inhalation aerosol 2 puffs, Inhalation, 4 times a day, PRN for wheezing, # 25 Gm, 0 Refills, Maintenance, 12/12/15 13:56:06, Aerosol, 2 puffs Inhalation 4 times a day,PRN:for wheezing Start Date: 12/12/15 Status: Ordered Carafate 1 gm oral tablet 1 Gm, 1, tablet, By Mouth, 4 times a day, # 120 tablet, Refills 0, Tot. Refills 0, Maintenance, 12/12/22 9:06:00 EST, Route to Pharmacy Electronically, [facility]/pharmacy #[id number], Partial fill upon patient request if the prescription is for a schedule II opio... Start Date: 12/12/22 Status: Ordered clonidine 0.2 mg oral tablet See Instructions, 1 tablet By Mouth Daily at bedtime, 0 Refills, Maintenance, 01/30/14 13:22:44 Start Date: 01/30/14 Status: Ordered fluvoxamine 100 mg oral tablet See Instructions, 2.5 tablets By Mouth Daily at bedtime, 0 Refills, Maintenance, 01/30/14 13:23:19 Start Date: 01/30/14 Status: Ordered Methylphenidate By Mouth, Daily, 0 Refills, Maintenance, 12/12/22 6:48:00 EST, Partial fill upon patient request ifthe prescription is for a schedule II opioid drug. Start Date: 12/12/22 Status: Ordered omeprazole 20 mg oral enteric coated capsule 1 capsule = 20 mg, By Mouth, Daily, before a meal, 0 Refills, Maintenance, 05/06/18 15:19:48 EDT, EC Capsule Start Date: 05/06/18 Status: Ordered omeprazole 40 mg oral enteric coated capsule 1 capsule = 40 mg, By Mouth, Daily, # 90 capsule, 0 Refills, Maintenance, 12/12/22 9:06:00 EST, EC Capsule, [facility]/pharmacy #[id number], Partial fill upon patient request if the prescription is for a scheduleII opioid drug., 173, cm, 12/12/22 6:44:00 EST, Hei... Start Date: 12/12/22 Status: Ordered ondansetron 4 mg oral tablet, disintegrating 1 tablet = 4 mg, By Mouth, Every 8 hours, PRN Nausea & Vomiting, for 10 days, # 30 tablet, 0 Refills, Acute 12/22/22 9:07:00 EST, 12/12/22 9:07:00 EST, Tablet, [facility]/pharmacy #[id number], Partial fill upon patient request if the prescription is for a schedule... Start Date: 12/12/22 Stop Date: 12/22/22 Status: Ordered traZODone 100 mg oral tablet 100 mg, 1, tablet, By Mouth, Daily at bedtime, Refills 0, Maintenance, 05/06/17 9:09:22 Start Date: 05/06/17 Status: Ordered Problem List Condition Confirmation Course Effective Dates Status Health Status Informant Asperger's syndrome Confirmed Active Bipolar disorder 1 Confirmed Active Hypertriglyceridemia Confirmed Active Glucose intolerance (impaired glucose tolerance) Confirmed Active Mild asthma Confirmed Active Social history 2 Confirmed Active 1sees psych 2smokes 1 ppd,rare etoh,[place]-smoked marijuana in the past,big y,lives with friends,family in [place] Vital Signs Most recent to oldest [Reference Range]: 1 2 Height 173 cm (12/12/22 6:44 AM) Weight 158.3 kg (12/12/22 6:44 AM) Oxygen Saturation [94-100 %] 99 % (12/12/22 9:14 AM) 96 % (12/12/22 6:39 AM) Pulse Rate [55-90 bpm] 65 bpm (12/12/22 9:14 AM) 113 bpm *H* (12/12/22 6:39 AM) Blood Pressure [90-138/55-84 mm Hg] 118/ 70mm Hg (12/12/22 9:14 AM) 127/75mm Hg (12/12/22 6:44 AM) Respiratory Rate [16-30 br/min] 19 br/mi n (12/12/22 9:14 AM) 16 br/min (12/12/22 6:39 AM) Temperature [96.8-100.4 DegF] 96.7 DegF *L* (12/12/22 6:44 AM) Mode of Delivery (Oxygen) Room air (12/12/22 9:14 AM) Room air (12/12/22 6:39 AM) Blood pressure sites Arm, right (12/12/22 9:14 AM) Arm, left (12/12/22 6:44 AM) Temperature Route Temporal (12/12/22 6:44 AM) Dry Weight 158.3 kg (12/12/22 6:44 AM) Weight Obtained Via Standing scale (12/12/22 6:44 AM) Dry Weight Obtained Via Standing scale (12/12/22 6:44 AM) Social History Social History Type Response Smoking Status Current every day sm jet; Type: Cigarettes; Other: Pt smokes a couple-0 cigarettes a day; Tobacco use times per day: 20; entered on: 08/02/15 Sex Note * Thien CHAND, Neo Sparrow: PERFORM Event Display: Patient Education Leaflets Authored Date: [id number] Gastritis or Ulcer, No Antibiotic Treatment ?? [id number] Gastritis or Ulcer, No Antibiotic Treatment Gastritis??is irritation and inflammation of the stomach lining. This means the lining is red and swollen. It can cause shallow sores in the stomach lining called erosions. An??ulcer??is a deeper open sore in the lining of the stomach. It may also occur in the first part of the small intestine (duodenum).??The causes and symptoms of gastritis and ulcers are very similar. Causes and risk factors for both problems can include: ??? Long-term use of nonsteroidal anti-inflammatory drugs (NSAIDs) such as aspirin and ibuprofen ??? H. pylori??bacteria infection ??? Tobacco use ??? Alcohol use ??? Certain other conditions such asimmune disorders, certain medicines such as high-dose iron supplements, and street drugs such as cocaine Symptoms for both problems can include: ??? Dull or burning pain in the upper part of the belly ??? Loss of appetite ??? Heartburn or upsetstomach ??? Frequent burping ??? Bloated feeling ??? Nausea with or without vomiting You likely had an assessment to help find the exact cause and extent of your problem. This may haveincluded a health history, exam, and certain tests. Results showed that your problem is not from ??H. pylori??infection. For this reason, you don't need antibiotics as part of your treatment. Whether your problem is gastritis or an ulcer, you will still need to take other medicines. You will also need to follow instructions to help reduce stomach irritation so your stomach can heal.?? Home care ??? Take any medicines you???re prescribed exactly as directed. Common medicines used to treat gastritis include: o Antacids.??These help neutralize the normal acids in your stomach. o Proton pump inhibitors.??These block your stomach from making any acid. o H2??blockers. These reduce theamount of acid your stomach makes. o Bismuth subsalicylate.??This helps protect the lining of your stomach from acid. ??? Don't take any NSAIDs during your treatment. If you take NSAID to help treat other health problems, tell your healthcare provider. They may need to adjust your medicine plan or change the dosage. ??? Don???t use tobacco. Also don???t drink alcohol. These products can increase the amount of acid your stomach makes. This can delay healing. It can also worsen symptoms. ?? Follow-up care Follow up with your healthcare provider, or as advised. In some cases, you may need more tests. ?? When to seek medical advice Call your healthcare provider right away if any of these occur: ??? Fever of 100.4??F (38??C) or higher, or as directed by your healthcare??provider ??? Stomach pain that gets worse or moves to the lower right part of belly ??? Extreme tiredness (fatigue) ??? Weakness or dizziness ??? Continued weight loss ??? Frequent vomiting,??blood in your vomit, or coffee-groundlike substance in your vomit ??? Black, tarry, or bloody stools ??? Symptoms get worse or you have new symptoms ?? Call 911 Call 911??if any of these occur: ??? Chest pain appears or worsens, or spreads to the back, neck, shoulder, or arm ??? Unusually fast heart rate ??? Trouble breathing or swallowing ??? Confusion ??? Extreme drowsiness or trouble waking up ??? Fainting ??? Large amounts of blood present in vomit or stool ?? Last Reviewed Date: 2021 ?? [id number] [employer]. All rights reserved. This information is not intended as a substitute for professional medical care. Always follow your healthcare professional's instructions. ?? * Thien CHAND, Neo Sparrow: PERFORM Event Display: Patient Education Leaflets Authored Date: [id number] Peptic Ulcer ?? [id number] Peptic Ulcer A peptic ulcer is an open sore in the lining of the stomach. It may also occur in the first part ofthe small intestine (duodenum).?? Causes The most common causes of ulcers are: ??? H. pylori bacterial infection ??? Long-term use of nonsteroidal anti- inflammatory drugs (NSAIDs), such as aspirin or ibuprofen Other factors that can increase the risk for ulcers include older age and family history of peptic ulcers, and use of certain medicines. Tobacco and alcohol use are also risk factors. Emotional stress, worry, and spicy foods don't cause peptic ulcers. ?? Symptoms A peptic ulcer may or may not cause symptoms. If symptoms do occur, they can include: ??? Dull or burning pain anywhere between your belly button and breastbone ??? Loss of appetite ???Heartburn or upset stomach ??? Frequent burping ??? Bloated feeling ??? Nausea or vomiting. Vomit may be bloody or look like coffee grounds. ??? Black, tarry, or bloody stools (which means the ulcer is bleeding) Sometimes the bleeding is not seen. In these cases, it may be discovered by symptoms of low blood count (anemia), such as dizziness, weakness, shortness of breath, pale skin, trouble with exercise, or a blood test. If an ulcer is suspected, your healthcare provider may check for??H. pylori infection. To do this, you may have blood, stool, or breath tests.??Upper endoscopy (EGD) is usually done to check for ulcers and take samples (biopsies) to be evaluated under the microscope. An X-ray test called an upper ga strointestinal (GI) series can be done in some cases, but it could miss small ulcers that would be seen on the upper endoscopy. Without treatment, a peptic ulcer may get worse. This can lead to serious problems, such as bleeding, blockage, or a hole (perforation) in the stomach or duodenum. Treatment is needed to prevent these problems. Medicines are the most common treatment for peptic ulcers. In severe cases, surgery may be needed. ?? Home care Medicines If you???re prescribed medicines, be sure to take them as directed. Common medicines prescribed include: ??? Antibiotics.??These kill??H. pylori??bacteria. In many cases, you???ll need to take at least 2??types of antibiotics.??The regimens can be complicated and need many medicines either at once, or taken in order. This is because H. pylori bacteria is often hard to treat. It's very important to take the medicines as prescribed.? Proton pump inhibitors.??These block your stomach from making any acid. ??? H2??blockers.??These reduce the amount of acid your stomach makes.??These are sometimesused for duodenal ulcers. ??? Bismuth subsalicylate.??This helps protect the lining of your stomachand duodenum from acid. ??? Carafate. This coats the stomach lining to protect it and help with healing. General care ??? Don???t take any NSAIDS, such as aspirin, ibuprofen, or naproxen without talking with your healthcare provider first. They may delay healing. Also check with your provider before taking any antacids. ??? Don't use alcohol or tobacco. These may delay healing. They may also make??symptoms worse. ?? Follow-up care Follow up with your healthcare provider as directed.??If testing was done, you???ll be told the results when they are ready.??In some cases of gastric ulcer, a repeat upper endoscopy is needed to check for healing.??You may also need a test of cure after treatment for H. pylori. ?? When to get medical care Call your healthcare provider right away if any of these occur: ??? Fever of 100.4??F (38??C) or higher, or as advised by your provider ??? Stomach pain that worsens or moves to the lower right part of the belly (abdomen) ??? Continued weight loss ??? Pale skin ??? Fast heartbeat ??? Weakness or dizziness ??? Extreme tiredness (fatigue) ??? Shortness of breath ??? Frequent vomiting, blood in yourvomit, or coffee ground-like substance in your vomit ??? Black, tarry, or bloody stools ?? Call 911 Call 911??right away if any of these occur: ??? Sudden or severe pain in the stomach region ??? Stomach becomes rigid ??? Low body temperature ??? Unusually fast heart rate ??? Chest pain appears or gets worse, or spreads to the back, neck, shoulder, or arm ??? Trouble breathing or swallowing ??? Confusion ??? Extreme drowsiness or trouble waking up ??? Fainting ??? Large amounts of blood in the vomit or stool ?? Last Reviewed Date: 2022 ?? [employer]. All rights reserved. This information is not intended as a substitute for professional medical care. Always follow your healthcare professional's instructions. ?? * Thien CHAND, Neo Sparrow: PERFORM Event Display: Patient Education Leaflets Authored Date: [id number] GERD (Adult) ?? [id number] GERD (Adult) The esophagus is a tube that carries food from the mouth to the stomach. A valve (lower esophageal sphincter) prevents stomach acid from flowing upward. Sometimes this valve doesn't work correctly. Then stomach contents may flow (reflux) into the esophagus. When it happens again and again, it's called??GERD (gastroesophageal reflux disease).??GERD can irritate the esophagus. It can cause pain. Itcan also cause problems with swallowing or breathing. In severe cases, GERD can cause pneumonia that keeps coming back. This is from breathing in particles (aspiration). Symptoms of reflux include burning, pressure, or sharp pain in the upper belly (abdomen). Symptoms may also be in the mid- to lower chest. The pain can spread to the neck, back, or shoulder. You may have: ??? Belching ??? Acid taste in the back of the throat ??? Chronic cough ??? Sore throat ??? Hoarseness GERD symptoms often occur during the day after a big meal. They can also occur at night when lying down.?? Home care Lifestyle changes can help ease symptoms. Your healthcare provider may also prescribe medicines.??Symptoms often get better with treatment. But if treatment is stopped, the symptoms often return after a few months. Most people with GERD will need to continue treatment. Or they may need treatment onand off. Lifestyle changes ??? Limit or don't eat fatty, fried, or spicy foods. Also limit coffee, chocolate, mint, and foods with high acid content. These include tomatoes and citrus fruit and juices (orange, grapefruit, and lemon). ??? Don???t eat large meals, especially at night. Frequent, smaller meals are best. Don't lie down right after eating. And don???t eat anything 3 hours before going to bed. ??? Don't drink alcohol or smoke. As much as possible, stay away from secondhand smoke. ??? If you are overweight, losing weight will reduce symptoms.? Don't wear tight clothing around your stomach area. ??? If your symptoms occur during sleep, use a foam wedge to raise your upper body not just your head. Or place 4-inch blocks under the head of your bed. Or use 2 bed risers under your bed frame. ??? Talk with your provider if you have trouble making the suggested lifestyle changes. They may be able to give you resources to help. Medicines Medicines can help ease the symptoms of GERD. They also help prevent damage to the esophagus. Discuss a medicine plan with your healthcare provider. This may include one or more of these medicines: ??? Antacids. These help neutralize the normal acids in your stomach. ??? Acid blockers (histamine or H2 blockers). These decrease how much acid your stomach makes. ??? Acid inhibitors (proton pump inhibitors PPIs). These also decrease how much acid your body makes, but in a different way from the blockers. They may work better. But they can take a little longer to do so. Take an antacid 30 to 60 minutes after eating and at bedtime, but not at the same time as an acid cole. Try not to take medicines such as ibuprofen and aspirin. If you take aspirin for your heart or other health reasons, talk with your healthcare provider about stopping it. ?? Follow-up care Follow up with your healthcare provider as advised. ?? When to seek medical advice Call your healthcare provider if any of the following occur: ??? Stomach pain gets worse or moves to the lower right belly (appendix area) ??? Chest pain appears or gets worse, or spreads to the back, neck, shoulder, or arm ??? An [id number] trial of medicine doesn't relieve your symptoms ???Weight loss that can't be explained ??? Trouble or pain swallowing ??? Frequent vomiting (can???t keep down liquids) ??? Blood in the stool or vomit (red or black in color) ??? Feeling weak or dizzy ??? Fever of 100.4??F (38??C) or higher, or as directed by your healthcare provider ??? Symptoms getworse or you have new symptoms ?? Last Reviewed Date: 2021 ?? [id number] [employer]. All rights reserved. This information is not intended as a substitute for professional medical care. Always follow your healthcare professional's instructions. ?? Patient Care team information Care Team Personnel Name: Kria Calderón NP Position: [facility] Outreach Member Role: Lifetime Consulting Physician Address: Address: [address] [place] [id number]- Name: Not on Staff, PCP Position: [facility] Physician (General Medicine) Member Role: PCP Name: Shahrzad Dodge Position: [facility] Outreach Member Role: Lifetime Consulting Physician Name: Charly Ivory Position: [facility] ED OA Member Role: Patient Care Provider Name: Jacklyn Fish RN Position: [facility] ED RN W/OE and Tasks Member Role: Patient Care Provider Name: Neo Neumann MD Position: [facility] ED Medicine MD Member Role: Admitting Physician Address: Address: [address] [place] [id number]- Name: Andres Ken RN Position: [facility] ED RN W/OE and Tasks Member Role: Patient Care Provider Care Team Related Persons Name: NIMCO LDUWIG Name: ELIZABETH NARVAEZ Address: [address] [place] [address] Name: PRIYA KRAUS Address: home [address] [place] [address] Name: LEV KRAUS Address: home [address] [place] [id number]
--- NOTE | 2024-01-29 11:02 | AM.OFFWIN_ITS ---
Intake Vital Signs 01/29/24 11:03 Height 5 ft 8 in Weight 363 lb BMI 55.2 BP 130/100 H Blood Pressure Location Lt brachial Position Sitting Pulse 124 H Pulse Source Pulse Oximeter Temp 97.7 F Temp Source Temporal Artery Scan Pulse Oximetry (%) 99 Oxygen Delivery Method Room Air Intake Visit Reasons: EP Sciatic Nerve pain Intake Note: pt is here today for sciatic nerve pain stared 3 days ago Patient Tobacco Use Status: Current everyday Tobacco user Allergies No Known Allergies [No Known Allergies*] Allergy (Verified 01/29/24 11:06) Do you need a note to return to daycare/school/sports/work: Yes HPI HPI Comments History of Present Illness Details This is a 33-year-old male with a past medical history of gastroesophageal reflux disease, lumbar radiculopathy and hypertriglyceridemia presenting for evaluation of low back pain that radiates down the side of his r ight leg the past 5 days. Patient denies any injury or trauma preceding the onset of his symptoms. Patient has been taking ibuprofen ?like candy? without relief of his symptoms. Patient denies any saddle paresthesias, numbness or tingling in his right leg or foot. [facility] Medical History Annual physical exam Morbid obesity due to excess calories Myofascial pain syndrome Cholecystectomy planned Disc degeneration, lumbar Restless leg syndrome Chronic pain syndrome Lumbosacral spondylosis with radiculopathy Skin tag of perineum in male Fatty liver disease, nonalcoholic Sleep apnea, unspecified Vitamin D deficiency, unspecified Mixed irritable bowel syndrome B12 deficiency Elevated cholesterol Current smoker Asperger syndrome Body mass index (BMI) 20.0-20.9, adult PDD (pervasive developmental disorder) Morbid (severe) obesity due to excess calories Gastro-esophageal reflux disease without esophagitis Surgical History Hx of cholecystectomy History of esophagogastroduodenoscopy (EGD) Family History Father HTN (hypertension) Diabetes mellitus Mental health disorder Mother Breast cancer Maternal Grandmother Uterine cancer Social History Household Members 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 Housing: [facility] Patient Tobacco Use Status: Current everyday Tobacco user Tobacco use type: Cigarette Cigarettes Per Day: 5 Years Smoked: 10 e-Cigarette/Vaping Use: Never Used Current occupational status: employed Cognitive needs: No Hearing needs: No Vision needs: Yes Review of Systems Const All systems reviewed & are unremarkable except as noted in HPI and below Reports as per HPI Eyes Reports no additional complaints ENT Reports no additional complaints Card Reports no additional complaints Resp Reports no additional complaints Musc Reports back pain and Reports radiating pain into limb (radiating to right leg) Skin/Breast Reports system reviewed and no additional complaints, except as documented Neuro Reports no additional complaints Physical Exam Vital Signs: Last Vital Signs Temp 97.7 F 01/29/24 11:03 Pulse 124 H 01/29/24 11:03 BP 130/100 H 01/29/24 11:03 Pulse Ox 99 01/29/24 11:03 Oxygen Delivery Method Room Air 01/29/24 11:03 BMI result Body Mass Index 55.2 HR 92bpm on examination Const General: cooperative, alert, awake and Physically active; No lethargic Nutritional Appearance: obese morbidly obese Orientation/consciousness: patient oriented x3 and No lethargic Limitations: no limitations Cardio Rate: regular rate Rhythm: regular rhythm Back/Spine/Pelvis Thoracic/Lumbar Spine: thoracic and lumbar spine normal to inspection, pain with thoraco-lumbar ROM, lumbar spinal tenderness (right lumbar paraspinous tenderness; no sciatic notch tenderness) and straight leg raise positive (right) Pelvis: no sciatic notch tenderness Neuro General: patient oriented x3 Extrem Right lower extremity: full ROM (passive ROM R. hip and R. knee intact; sensation intact throughout RLE) Psych Appearance: grossly normal Mental Status: mental status grossly normal Insight: Good insight present (Psych) Judgement: Good judgement present (Psych) Assessment & Plan Assessment & Plan (1) Lumbar radiculopathy, right: Comment: Given this patient's history coupled with his examination I do not feel that any urgent imaging is warranted at this time. Patient is encouraged to discontinue the ibuprofen that he has been taking. Code(s): M54.16 - Radiculopathy, lumbar region Plan: Naprosyn every 12 hours, methocarbamol every 8 hours and the patient will follow up with his primary care provider for a re-evaluation of his symptoms and a possible referral for physical therapy evaluation. Medications: New methocarbamol 750 mg PO Q8H 20 tabs 0RF naproxen (Naprosyn) 500 mg PO BID 20 tabs 0RF Coding Level of Care Code Est Pt Level 3 (92939) Diagnoses Lumbar radiculopathy, right M54.16 Time Spent (min) 20
[2024-01-29 11:03] VITALS: BP 130/100; PULSE 124; TEMP 36.5; O2SAT 99; BMI 55.2
== END 2024-01-29 11:41 | disposition home or self-care (01) ==
PROVIDERS: PCP Internal Medicine; Visit Provider Physician Assistant
DX: M54.16 Radiculopathy, lumbar region (principal)
CPT/HCPCS: 99213

== ENCOUNTER 2024-02-11 11:05 | Outpatient (AMB) | payer OTHER, SELFPAY ==
--- NOTE | 2024-02-11 10:58 | MHC.PC.OV ---
Vital Signs 02/11/24 10:59 Height 5 ft 8 in Weight 354 lb BMI 53.8 BP 128/76 Blood Pressure Location Lt brachial Position Sitting Pulse 110 H Pulse Source Pulse Oximeter Pulse Oximetry (%) 96 Oxygen Delivery Method Room Air Intake Visit Reasons: Sciatic Nerve Intake Note: Pt is here today for a follow up visit after being seen in a walk in for back pain. Pt states that he needs a letter for a doctor stating that he can sit in the chair if he needs to. Allergies No Known Allergies [No Known Allergies*] Allergy (Verified 02/11/24 11:03) Medication List - Last Reconciled 02/11/24 by Lyndsay Huerta MD bupropion HCl XL 300 mg PO DAILY bupropion HCl XL 150 mg PO QAM clonidine HCl 0.3 mg PO BEDTIME PRN cyclobenzaprine 5 mg PO DAILY PRN fluvoxamine 100 mg PO BEDTIME gabapentin 300 mg PO BEDTIME lisinopril 5 mg PO DAILY methocarbamol 750 mg PO Q8H naproxen (Naprosyn) 500 mg PO BID omeprazole 40 mg PO DAILY trazodone 200 mg PO BEDTIME PRN Tobacco use date assessed: 02/11/24 Dental Screening Dental Screen Date: 02/11/24 Did you have a dental visit in the last 12 months?: No Did you have a dental problem in the last 6 months where you did not have access to dental care?: Yes Was dental information given to patient?: Yes HPI Sciatic Nerve HPI Details Patient presents for the follow-up of urgent care visit for acute sciatica. he was treated with naproxen and cyclobenzaprine and is feeling better. Patient has a to disc herniation and lumbar spine scoliosis and used to follow-up with pain management for chronic lower back pain. Patient has been trying to lose weight eating smaller meals and well-balanced diet. Patient has been trying to be more physically active. Ozempic was denied by his insurance. [facility] Medical History Annual physical exam Morbid obesity due to excess calories Myofascial pain syndrome Cholecystectomy planned Disc degeneration, lumbar Restless leg syndrome Chronic pain syndrome Lumbosacral spondylosis with radiculopathy Skin tag of perineum in male Fatty liver disease, nonalcoholic Sleep apnea, unspecified Vitamin D deficiency, unspecified Mixed irritable bowel syndrome B12 deficiency Elevated cholesterol Current smoker Asperger syndrome Body mass index (BMI) 20.0-20.9, adult PDD (pervasive developmental disorder) Morbid (severe) obesity due to excess calories Gastro-esophageal reflux disease without esophagitis Surgical History Hx of cholecystectomy History of esophagogastroduodenoscopy (EGD) Family History Father HTN (hypertension) Diabetes mellitus Mental health disorder Mother Breast cancer Maternal Grandmother Uterine cancer Social History Household Members 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 1. Little interest or pleasure in doing things: not at all 2. Feeling down, depressed, or hopeless: not at all 3. Trouble falling or staying asleep, or sleeping too much: not at all 4. Feeling tired or having little energy: not at all 5. Poor appetite or overeating: more than half the days 6. Feeling bad about yourself - or that you are a failure or have let yourself or your family down: not at all 7. Trouble concentrating on things, such as reading the newspaper or watching television: not at all 8. Moving or speaking so slowly that other people could have noticed. Or the opposite - being so fidgety or restless that you have been moving around a lot more than usual: not at all 9. Thoughts that you would be better off or of hurting yourself in some way: not at all Total score: 2 Depression Screening Interpretation: Negative Depression Screening Done: Yes 63306 - PHQ-9 Billing: Yes Source: Developed by Drs. Nirmal Saleh, Melody Lakhani, Virgilio Garcia and colleagues, with an educational maya from [employer]. Thrive Questionnaire Date Thrive assessed: 02/11/24 I am a: Patient What is your living situation today?: I have a steady place to live Within the past 12 months, did the food you bought not last and you didn't have the money to get more?: Never true Within the past 12 months, did you worry whether your food would run out before you got money to buy more?: Never true Do you have trouble paying for medicines?: No Do you have trouble getting transportation to medical appointments?: No Do you have trouble paying your heating and electricity bill?: No Do you have trouble taking care of your child, family member or friend?: No Do you have trouble with day-to-day activities such as bathing, preparing meals, shopping, managing finances, etc.?: No Are you currently unemployed and looking for a job?: No Are you interested in more education?: No Please select the resources that you would like help with: None THRIVE Score: 0 AUDIT C Alcohol Use Questionnaire (AUDIT-C) 1. How often do you have a drink containing alcohol?: Never 3. How often do you have six or more drinks on one occasion?: Never Total Score: 0 TROY-7 AMB Questionnaire TROY-7 Date TROY - 7 assessed: 02/11/24 Feeling nervous, anxious, or on edge: 1 = Several days Not being able to stop or control worryin = Several days Worrying too much about different things: 0 = Not at all Trouble relaxin = Not at all Being so restless that it is hard to sit still: 1 = Several days Becoming easily annoyed or irritable: 0 = Not at all Feeling afraid as if something awful might happen: 0 = Not at all Total TROY-7 score (0-4 normal; 5-9 mild; 10-14 moderate; 15-21 severe): 3 Source: Developed by Drs. Nirmal Saleh, Melody Lakhani, Virgilio Garcia and colleagues, with an educational maya from [employer]. Review of Systems Const All systems reviewed & are unremarkable except as noted in HPI and below Eyes Reports no additional complaints ENT Reports no additional complaints Card Reports no additional complaints Resp Reports no additional complaints GI Reports no additional complaints Reports no additional complaints Physical exam (Primary Care) Vital Signs: Last Vital Signs Pulse 110 H 02/11/24 10:59 BP 128/76 02/11/24 10:59 Pulse Ox 96 02/11/24 10:59 Oxygen Delivery Method Room Air 02/11/24 10:59 BMI result Body Mass Index 53.8 Tobacco/Smoking Status: Tobacco use Status Tobacco use date assessed 02/11/24 02/11/24 11:06 Patient Tobacco Use Status Current everyday Tobacco 02/11/24 11:06 Tobacco use type Cigarette 02/11/24 11:06 e-Cigarette/Vaping Use Never Used 02/11/24 11:06 PHQ-9: PHQ-9 Score PHQ-9: Total score 2 02/11/24 11:54 Depression Screening Interpretation: Negative Thrive Assessment: Date of Thrive Assessment Date Thrive assessed 02/11/24 02/11/24 11:54 Const General: no acute distress Neck Neck: Yes supple Resp Effort & Inspection: normal respiratory effort Auscultation: clear to auscultation bilaterally Cardio Rhythm: regular rhythm Heart sounds: S1 normal heart sound present and S2 normal heart sound present Back/Spine/Pelvis Other: Paraspinal tenderness lower lumbar region, Assessment and Plan Assessment & Plan (1) Lumbar radiculopathy, right: Code(s): M54.16 - Radiculopathy, lumbar region Plan: Referred to physical therapy, regular stretching exercising including trying yoga discussed with the patient he was given work note requesting work accommodation. (2) B12 deficiency: Code(s): E53.8 - Deficiency of other specified B group vitamins Plan: Check the level (3) Morbid obesity due to excess calories: Comment: pt was established with weight management, but not interested in follow-up now (01/22) Code(s): E66.01 - Morbid (severe) obesity due to excess calories Plan: the patient has been eating well-balanced diet, decreasing caloric intake and increasing physical activity Wegovy 0.25 mg weekly for the 1st month then increase to 0.5 mg will be started. Patient will schedule physical appointment and have fasting labs before Orders: Orders PT Evaluation and Treatment Today M54.16 - Radiculopathy, lumbar region Comprehensive [place]. Panel Fast Today E53.8 - Deficiency of other specified B group vitamins, E66.01 - Morbid (severe) obesity due to excess calories Hemoglobin A1c Today E53.8 - Deficiency of other specified B group vitamins, E66.01 - Morbid (severe) obesity due to excess calories Complete Blood Count Auto Diff Today E53.8 - Deficiency of other specified B group vitamins, E66.01 - Morbid (severe) obesity due to excess calories Microalbumin, Random (w Creat) Today E53.8 - Deficiency of other specified B group vitamins, E66.01 - Morbid (severe) obesity due to excess calories Lipid Panel Today E53.8 - Deficiency of other specified B group vitamins, E66.01 - Morbid (severe) obesity due to excess calories Vitamin B12 and Folate Today E53.8 - Deficiency of other specified B group vitamins Medications: New [place] (semaglutide (weight loss)) administer weeks 1 through 4 of therapy, then 0.5 mg q week, 0.25 mg (0.5 mL) subcut QWEEK 8 mL 2RF NS Coding Level of Care Code Est Pt Level 4 (62996) Diagnoses Lumbar radiculopathy, right M54.16 B12 deficiency E53.8 Morbid obesity due to excess calories E66.01
[2024-02-11 10:59] VITALS: BP 128/76; PULSE 110; O2SAT 96; BMI 53.8
== END 2024-02-11 11:48 | disposition home or self-care (01) ==
PROVIDERS: PCP Internal Medicine; Visit Provider Internal Medicine
DX: M54.16 Radiculopathy, lumbar region (principal); E53.8 Deficiency of other specified B group vitamins; E66.01 Morbid (severe) obesity due to excess calories; Z68.43 Body mass index [BMI] 50.0-59.9, adult
CPT/HCPCS: 99214

== ENCOUNTER 2024-05-19 10:00 | Outpatient (AMB) | payer OTHER, SELFPAY ==
--- NOTE | 2024-05-19 10:08 | A.OFFPC_ITS ---
Vital Signs 05/19/24 10:09 Height 5 ft 8 in Weight 359 lb BMI 54.6 BP 114/76 Blood Pressure Location Rt brachial Position Sitting Pulse 105 H Pulse Source Pulse Oximeter Pulse Oximetry (%) 96 Oxygen Delivery Method Room Air Intake Visit Reasons: Annual PE Intake Note: Pt is here today for PE. Allergies No Known Allergies [No Known Allergies*] Allergy (Verified 05/19/24 10:10) Medication List - Last Reconciled 05/19/24 by Lyndsay Huerta MD bupropion HCl XL 300 mg PO DAILY clonidine HCl 0.3 mg PO BEDTIME PRN cyclobenzaprine 5 mg PO DAILY PRN gabapentin 300 mg PO BEDTIME lisinopril 5 mg PO DAILY omeprazole 40 mg PO DAILY trazodone 100 mg PO BEDTIME PRN Tobacco use date assessed: 05/19/24 Dental Screening Dental Screen Date: 02/11/24 HPI Annual PE HPI Details Pt presents for PE. SHE COMPLAINS OF CHRONIC LOWER BACK PAIN AND IS INTERESTED IN TRYING PHYSICAL THERAPY. Patient states Rosemaryy was not covered by his insurance. He has been trying to lose weight eating well-balanced diet decreasing caloric intake and increasing physical activity for over 6 months. 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 [facility] Medical History Annual physical exam Morbid obesity due to excess calories Myofascial pain syndrome Cholecystectomy planned Disc degeneration, lumbar Restless leg syndrome Chronic pain syndrome Lumbosacral spondylosis with radiculopathy Skin tag of perineum in male Fatty liver disease, nonalcoholic Sleep apnea, unspecified Vitamin D deficiency, unspecified Mixed irritable bowel syndrome B12 deficiency Elevated cholesterol Current smoker Asperger syndrome Body mass index (BMI) 20.0-20.9, adult PDD (pervasive developmental disorder) Morbid (severe) obesity due to excess calories Gastro-esophageal reflux disease without esophagitis Surgical History Hx of cholecystectomy History of esophagogastroduodenoscopy (EGD) Family History Father HTN (hypertension) Diabetes mellitus Mental health disorder Mother Breast cancer Maternal Grandmother Uterine cancer Social History 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 1. Little interest or pleasure in doing things: more than half the days 2. Feeling down, depressed, or hopeless: not at all 3. Trouble falling or staying asleep, or sleeping too much: not at all 4. Feeling tired or having little energy: not at all 5. Poor appetite or overeating: not at all 6. Feeling bad about yourself - or that you are a failure or have let yourself or your family down: not at all 7. Trouble concentrating on things, such as reading the newspaper or watching television: not at all 8. Moving or speaking so slowly that other people could have noticed. Or the opposite - being so fidgety or restless that you have been moving around a lot more than usual: not at all 9. Thoughts that you would be better off or of hurting yourself in some way: not at all Total score: 2 Depression Screening Interpretation: Negative Depression Screening Done: Yes Source: Developed by Drs. Nirmal Saleh, Melody Lakhani, Virgilio Garcia and colleagues, with an educational maya from [email or web address]. Thrive Questionnaire Date Thrive assessed: 05/19/24 I am a: Patient What is your living situation today?: I have a steady place to live Within the past 12 months, did the food you bought not last and you didn't have the money to get more?: Never true Within the past 12 months, did you worry whether your food would run out before you got money to buy more?: Never true Do you have trouble paying for medicines?: No Do you have trouble getting transportation to medical appointments?: No Do you have trouble paying your heating and electricity bill?: No Do you have trouble taking care of your child, family member or friend?: No Do you have trouble with day-to-day activities such as bathing, preparing meals, shopping, managing finances, etc.?: No Are you currently unemployed and looking for a job?: No Are you interested in more education?: No Please select the resources that you would like help with: Housing/Long Term Currently or been in a relationship where the following occur: I choose not to answer THRIVE Score: 0 AUDIT C Alcohol Use Questionnaire (AUDIT-C) 1. How often do you have a drink containing alcohol?: Never 3. How often do you have six or more drinks on one occasion?: Never Total Score: 0 TROY-7 AMB Questionnaire TROY-7 Date TROY - 7 assessed: 05/19/24 Feeling nervous, anxious, or on edge: 0 = Not at all Not being able to stop or control worryin = Not at all Worrying too much about different things: 0 = Not at all Trouble relaxin = Not at all Being so restless that it is hard to sit still: 0 = Not at all Becoming easily annoyed or irritable: 0 = Not at all Feeling afraid as if something awful might happen: 0 = Not at all Total TROY-7 score (0-4 normal; 5-9 mild; 10-14 moderate; 15-21 severe): 0 Source: Developed by Drs. Nirmal Saleh, Melody Lakhani, Virgilio Garcia and colleagues, with an educational maya from [email or web address]. Review of Systems Const All systems reviewed & are unremarkable except as noted in HPI and below Reports no additional complaints Eyes Reports no additional complaints ENT Reports no additional complaints Card Reports no additional complaints Resp Reports no additional complaints GI Reports no additional complaints Reports no additional complaints Physical exam (Primary Care) Vital Signs: Last Vital Signs Pulse 105 H 05/19/24 10:09 BP 114/76 05/19/24 10:09 Pulse Ox 96 05/19/24 10:09 Oxygen Delivery Method Room Air 05/19/24 10:09 BMI result Body Mass Index 54.6 Tobacco/Smoking Status: Tobacco use Status Tobacco use date assessed 05/19/24 05/19/24 10:13 Patient Tobacco Use Status Current everyday Tobacco 05/19/24 10:13 Tobacco use type Cigarette 05/19/24 10:13 e-Cigarette/Vaping Use Never Used 05/19/24 10:13 PHQ-9: PHQ-9 Score PHQ-9: Total score 2 05/19/24 10:13 Depression Screening Interpretation: Negative Thrive Assessment: Date of Thrive Assessment Date Thrive assessed 05/19/24 05/19/24 10:13 Currently or been in a relationship where the following occur: I choose not to answer Const General: no acute distress HENMT Head: Yes normal to inspection Ears: hearing grossly normal bilaterally General nose exam: Normal external nose present Face and sinus: Yes normal facial exam Throat: Yes posterior oropharynx normal Eyes General: appearance normal, both eyes and all related structures Neck Neck: Yes no lymphadenopathy and Yes supple Resp Effort & Inspection: normal respiratory effort Auscultation: clear to auscultation bilaterally Cardio Rhythm: regular rhythm Heart sounds: S1 normal heart sound present and S2 normal heart sound present GI Inspection: Yes normal to inspection Palpation (GI): Soft to palpation Percussion: Yes normal to percussion Auscultation: normal bowel sounds Assessment and Plan Assessment & Plan (1) Lumbar radiculopathy, right: Code(s): M54.16 - Radiculopathy, lumbar region Plan: Continue gabapentin q.h.s. and referred to physical therapy (2) Morbid obesity due to excess calories: Comment: pt was established with weight management, Code(s): E66.01 - Morbid (severe) obesity due to excess calories Plan: It is medically necessary for the patient to lose weight. He will continue decrease caloric intake well-balanced diet increase physical activity. Zepbound 2.5 mg will be tried and if improved by insurance patient's weight will be monitored every 3 months (3) Hyperglycemia: Comment: A1C 6.3 01/22, Code(s): R73.9 - Hyperglycemia, unspecified Plan: ADA diet regular exercise weight loss discussed with the patient check A1c today (4) Proteinuria: Comment: Due to morbid obesity, Started on 5 mg of lisinopril for renal protection Code(s): R80.9 - Proteinuria, unspecified Plan: Follows up with Nephrology (5) Annual physical exam: Code(s): Z00.00 - Encounter for general adult medical examination without abnormal findings Plan: Well-balanced diet regular exercise weight loss discussed with the patient follow-up in 6 months Orders: Orders Hemoglobin A1c Today E66.01 - Morbid (severe) obesity due to excess calories, M47.27 - Other spondylosis with radiculopathy, lumbosacral region, R73.9 - Hyperglycemia, unspecified Lipid Panel Today E66.01 - Morbid (severe) obesity due to excess calories, M47.27 - Other spondylosis with radiculopathy, lumbosacral region, R73.9 - Hyperglycemia, unspecified Microalbumin, Random (w Creat) Today E66.01 - Morbid (severe) obesity due to excess calories, M47.27 - Other spondylosis with radiculopathy, lumbosacral region, R73.9 - Hyperglycemia, unspecified Vitamin B12 Today Z00.00 - Encounter for general adult medical examination without abnormal findings UA w Microscopic Today R80.9 - Proteinuria, unspecified PT Evaluation and Treatment Today M54.16 - Radiculopathy, lumbar region Complete Blood Count Auto Diff Today E66.01 - Morbid (severe) obesity due to excess calories, M47.27 - Other spondylosis with radiculopathy, lumbosacral region, R73.9 - Hyperglycemia, unspecified Total Protein Urine Random Today R80.9 - Proteinuria, unspecified Medications: New baclofen 10 mg PO BEDTIME 30 tabs 1RF Zepbound (tirzepatide (weight loss)) 2.5 mg (0.5 mL) subcut QWEEK 4 weeks 2 mL 3RF NS Zepbound (tirzepatide (weight loss)) 2.5 mg (0.5 mL) subcut QWEEK 2 mL 3RF NS Discontinued cyclobenzaprine Discontinued Reason: Doctor's Order 5 mg PO DAILY PRN 90 tabs 1RF muscle spasm Coding Level of Care Code Est Pt Prev Care 18-39y(37397) Diagnoses Lumbar radiculopathy, right M54.16 Morbid obesity due to excess calories E66.01 Hyperglycemia R73.9 Proteinuria R80.9 Annual physical exam Z00.00
[2024-05-19 10:09] VITALS: BP 114/76; PULSE 105; O2SAT 96; BMI 54.6
== END 2024-05-19 11:19 | disposition home or self-care (01) ==
PROVIDERS: PCP Internal Medicine; Visit Provider Internal Medicine
DX: Z00.00 Encounter for general adult medical examination without abnormal findings (principal); E66.01 Morbid (severe) obesity due to excess calories; Z68.43 Body mass index [BMI] 50.0-59.9, adult; M54.16 Radiculopathy, lumbar region; R73.9 Hyperglycemia, unspecified; R80.9 Proteinuria, unspecified
CPT/HCPCS: 99395

== ENCOUNTER 2024-10-13 09:43 | Outpatient (REF) | payer OTHER, SELFPAY ==
[2024-10-13 13:20] LABS: MANUAL DIFF FLAG NO
[2024-10-13 13:27] LABS: Basophils Percent Auto 0.5 % (0-2); Eosinophils Absolute Auto 0.3 X10*3/uL (0.0-0.4); Eosinophils Percent Auto 3.9 % (0-4); Hematocrit 42.1 % (42.0-52.0); Hemoglobin 14.8 g/dl (14.0-18.0); Imm Gran Abs Auto 0.04 X10*3/uL (0.00-0.03); Imm Gran Pct Auto 0.6 % (0.0-0.4); Lymphocytes Absolute Auto 1.5 X10*3/uL (1.2-4.9); Lymphocytes Percent Auto 22.9 % (20-40); Mean Corpuscular HGB Conc 35.2 g/dl (31.0-36.0); Mean Corpuscular Hemoglobin 30.5 pg (27.0-33.0); Mean Corpuscular Volume 86.8 fL (80.0-98.0); Mean Platelet Volume 10.2 fL (9.4-12.4); Monocytes Absolute Auto 0.5 X10*3/uL (0.1-1.2); Monocytes Percent Auto 7.6 % (2-11); Neutrophils Absolute Auto 4.2 x10*3/uL (2.0-8.3); Neutrophils Percent Auto 64.5 % (45-73); Platelet Count 180 X10*3/uL (160-400); Red Blood Count 4.85 X10*6/uL (4.60-5.80); Red Cell Distribution Width 12.2 % (11.0-16.0); White Blood Count 6.5 X10*3/uL (4.8-10.8)
[2024-10-13 13:32] LABS: Estimated Average Glucose 217 mg/dL; Hemoglobin A1C 273.5814 umol/L; Hemoglobin A1c % 9.2 % (<6.0); Total Hemoglobin (HGBA1C) 3562.0252 umol/L
[2024-10-13 13:53] LABS: Alanine Aminotransferase 176 U/L (0-40); Albumin Level 4.2 g/dL (3.5-5.0); Alkaline Phosphatase 84 U/L (39-117); Anion Gap 13 (12-20); Aspartate Amino Transferase 117 U/L (5-37); Bilirubin Total 0.5 mg/dL (0.0-1.0); Blood Urea Nitrogen 9 mg/dL (9-16); Calcium 9.7 mg/dL (8.4-10.2); Carbon Dioxide 29 mmol/L (22-29); Chloride 102 mmol/L (96-108); Cholesterol 203 mg/dL (<200); Estimated Glomerular Filt Rate > 60; Glucose Fasting 226 mg/dL (60-99); HDL Cholesterol 35 mg/dL (>40); Potassium 4.5 mmol/L (3.3-5.1); Sodium 139 mmol/L (135-145); Total Protein 7.6 g/dL (6.5-8.0); Triglycerides 441 mg/dL (<150)
[2024-10-13 14:06] LABS: Vitamin B12 383 pg/mL (200-900)
== END 2024-10-13 09:44 | disposition home or self-care (01) ==
LOC: HO.HMGCLDS 09:43
PROVIDERS: PCP Internal Medicine; Visit Provider Internal Medicine
DX: Z00.00 Encounter for general adult medical examination without abnormal findings (principal); E53.8 Deficiency of other specified B group vitamins; E66.01 Morbid (severe) obesity due to excess calories; R73.9 Hyperglycemia, unspecified; M47.27 Other spondylosis with radiculopathy, lumbosacral region
CPT/HCPCS: 36415; 80053; 80061; 82607; 83036; 85025

== ENCOUNTER 2024-11-03 10:15 | Outpatient (AMB) | payer OTHER, SELFPAY ==
--- NOTE | 2024-11-03 10:18 | A.OFFPC_ITS ---
Vital Signs 11/03/24 10:19 Height 5 ft 8 in Weight 355 lb BMI 54.0 BP 120/70 Blood Pressure Location Rt brachial Position Sitting Pulse 92 Pulse Source Pulse Oximeter Pulse Oximetry (%) 95 Oxygen Delivery Method Room Air Intake Visit Reasons: Follow up on lab results/DM Allergies No Known Allergies [No Known Allergies*] Allergy (Verified 11/03/24 10:40) Medication List - Last Reconciled 11/03/24 by Lyndsay Huerta MD baclofen 10 mg PO BEDTIME bupropion HCl XL 300 mg PO DAILY clonidine HCl 0.3 mg PO BEDTIME PRN fenofibrate 160 mg PO DAILY gabapentin 300 mg PO BEDTIME lisinopril 5 mg PO DAILY metformin ER 750 mg PO DAILY omeprazole 40 mg PO DAILY Ozempic (semaglutide) 0.25 mg (0.368 mL) subcut QWEEK NS trazodone 100 mg PO BEDTIME PRN Tobacco use date assessed: 11/03/24 Dental Screening Dental Screen Date: 11/03/24 Did you have a dental visit in the last 12 months?: No Did you have a dental problem in the last 6 months where you did not have access to dental care?: Yes Was dental information given to patient?: Yes HPI Follow up on lab results/DM HPI Details Patient presents for the follow-up of type 2 diabetes, hypertriglyceridemia chronic depression. Patient is starting following ADA diet for the last 2 weeks since the results for the A1c. He reports fasting blood glucose between 120-140 and 2 hours after meal the highest at 160. Patient has been trying to increase physical activity limited by chronic lower back pain [facility] Medical History (Updated 11/03/24 @ 12:16 by Lyndsay Huerta MD) Annual physical exam Morbid obesity due to excess calories Myofascial pain syndrome Cholecystectomy planned Disc degeneration, lumbar Restless leg syndrome Chronic pain syndrome Lumbosacral spondylosis with radiculopathy Skin tag of perineum in male Fatty liver disease, nonalcoholic Sleep apnea, unspecified Vitamin D deficiency, unspecified Mixed irritable bowel syndrome B12 deficiency Elevated cholesterol Current smoker Asperger syndrome Body mass index (BMI) 20.0-20.9, adult PDD (pervasive developmental disorder) Morbid (severe) obesity due to excess calories Gastro-esophageal reflux disease without esophagitis Surgical History Hx of cholecystectomy History of esophagogastroduodenoscopy (EGD) Family History Father HTN (hypertension) Diabetes mellitus Mental health disorder Mother Breast cancer Maternal Grandmother Uterine cancer Social History Household Members Other:: 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 1. Little interest or pleasure in doing things: not at all 2. Feeling down, depressed, or hopeless: not at all 3. Trouble falling or staying asleep, or sleeping too much: not at all 4. Feeling tired or having little energy: not at all 5. Poor appetite or overeating: not at all 6. Feeling bad about yourself - or that you are a failure or have let yourself or your family down: not at all 7. Trouble concentrating on things, such as reading the newspaper or watching television: not at all 8. Moving or speaking so slowly that other people could have noticed. Or the opposite - being so fidgety or restless that you have been moving around a lot more than usual: not at all 9. Thoughts that you would be better off or of hurting yourself in some way: not at all Total score: 0 Depression Screening Interpretation: Negative Depression Screening Done: Yes 86219 - PHQ-9 Billing: Yes Source: Developed by Drs. Nirmal Saleh, Melody Lakhani, Virgilio Garcia and colleagues, with an educational maya from [employer]. Thrive Questionnaire Date Thrive assessed: 11/03/24 I am a: Patient What is your living situation today?: I have a steady place to live Within the past 12 months, did the food you bought not last and you didn't have the money to get more?: Never true Within the past 12 months, did you worry whether your food would run out before you got money to buy more?: Never true Do you have trouble paying for medicines?: No Do you have trouble getting transportation to medical appointments?: No Do you have trouble paying your heating and electricity bill?: No Do you have trouble taking care of your child, family member or friend?: No Do you have trouble with day-to-day activities such as bathing, preparing meals, shopping, managing finances, etc.?: No Are you currently unemployed and looking for a job?: No Are you interested in more education?: Yes Please select the resources that you would like help with: Utilities and Education Currently or been in a relationship where the following occur: No concerns reported THRIVE Score: 0 AUDIT C Alcohol Use Questionnaire (AUDIT-C) 1. How often do you have a drink containing alcohol?: Never 3. How often do you have six or more drinks on one occasion?: Never Total Score: 0 TROY-7 AMB Questionnaire TROY-7 Date TROY - 7 assessed: 11/03/24 Feeling nervous, anxious, or on edge: 1 = Several days Not being able to stop or control worryin = Several days Worrying too much about different things: 1 = Several days Trouble relaxin = Not at all Being so restless that it is hard to sit still: 0 = Not at all Becoming easily annoyed or irritable: 1 = Several days Feeling afraid as if something awful might happen: 0 = Not at all Total TROY-7 score (0-4 normal; 5-9 mild; 10-14 moderate; 15-21 severe): 4 Source: Developed by Drs. Nirmal Saleh, Melody Lakhani, Virgilio Garcia and colleagues, with an educational maya from [employer]. TROY-7 Assessment Billing TROY-7 Assessment Tool: TROY-7 Assessment 66337 Review of Systems Const All systems reviewed & are unremarkable except as noted in HPI and below Eyes Reports no additional complaints ENT Reports no additional complaints Card Reports no additional complaints Resp Reports no additional complaints GI Reports no additional complaints Reports no additional complaints Physical exam (Primary Care) Vital Signs: Last Vital Signs Pulse 92 11/03/24 10:19 BP 120/70 11/03/24 10:19 Pulse Ox 95 11/03/24 10:19 Oxygen Delivery Method Room Air 11/03/24 10:19 BMI result Body Mass Index 54.0 Tobacco/Smoking Status: Tobacco use Status Tobacco use date assessed 11/03/24 11/03/24 10:19 Patient Tobacco Use Status Former Tobacco user (2 weeks 11/03/24 10:44 ago) Tobacco use type Cigarette 11/03/24 10:18 e-Cigarette/Vaping Use Never Used 11/03/24 10:18 PHQ-9: PHQ-9 Score PHQ-9: Total score 0 11/03/24 10:24 Depression Screening Interpretation: Negative Thrive Assessment: Date of Thrive Assessment Date Thrive assessed 11/03/24 11/03/24 10:18 Currently or been in a relationship where the following occur: No concerns reported Const General: no acute distress Eyes General: appearance normal, both eyes and all related structures Resp Effort & Inspection: normal respiratory effort Auscultation: clear to auscultation bilaterally Cardio Rhythm: regular rhythm Heart sounds: S1 normal heart sound present and S2 normal heart sound present GI Inspection: Yes normal to inspection Palpation (GI): Soft to palpation Percussion: Yes normal to percussion Coding Level of Care Code Est Pt Level 4 (06725) Complex EM visit Add On G2211 Diagnoses Morbid obesity due to excess calories E66.01 DM type 2 (diabetes mellitus, type 2) E11.9 Elevated LFTs R79.89 Hypertriglyceridemia E78.1 Additional Codes TROY-7 Assessment Billing - TROY-7 Assessment Tool: TROY-7 Assessment 92305 ([id number]) PHQ-9 - 28216 - PHQ-9 Billing: Yes ([id number]) Assessment & Plan Assessment & Plan (1) Morbid obesity due to excess calories: Comment: pt was established with weight management, insurance refused to cover GLP 1 Code(s): E66.01 - Morbid (severe) obesity due to excess calories Category: Medical Plan: Decreasing caloric intake increase physical activity discussed with the patient (2) DM type 2 (diabetes mellitus, type 2): Code(s): E11.9 - Type 2 diabetes mellitus without complications Category: Medical Plan: A1c is 9.2, ADA diet increase in physical activity weight loss discussed with the patient . metformin 750 mg will be restarted and Ozempic 0.25 weekly for the 1st month then increase to 0.5 mg weekly for type 2 diabetes morbid obesity to decrease the risk of morbid obesity complications including heart attack CVA kidney failure obstructive sleep apnea (3) Elevated LFTs: Code(s): R79.89 - Other specified abnormal findings of blood chemistry Category: Medical Plan: Decreasing simple carbohydrates intake NSAIDs alcohol weight loss discussed with the patient abdominal ultrasound will be obtained to evaluate for nonalcoholic hepatosteatosis (4) Hypertriglyceridemia: Code(s): E78.1 - Pure hyperglyceridemia Category: Medical Plan: Restart fenofibrate Orders: Orders Comprehensive [place]. Panel Fast 3 Months E11.9 - Type 2 diabetes mellitus without complications, E66.01 - Morbid (severe) obesity due to excess calories Microalbumin, Random (w Creat) 3 Months E11.9 - Type 2 diabetes mellitus without complications, E66.01 - Morbid (severe) obesity due to excess calories US abdomen limited Today R79.89 - Other specified abnormal findings of blood chemistry Hepatitis A,B,C Profile 3 Months E11.9 - Type 2 diabetes mellitus without complications, R79.89 - Other specified abnormal findings of blood chemistry HIV Ab/Ag 3 Months E11.9 - Type 2 diabetes mellitus without complications, R79.89 - Other specified abnormal findings of blood chemistry Complete Blood Count Auto Diff 3 Months E11.9 - Type 2 diabetes mellitus without complications, E66.01 - Morbid (severe) obesity due to excess calories Hemoglobin A1c 3 Months E11.9 - Type 2 diabetes mellitus without complications, E66.01 - Morbid (severe) obesity due to excess calories Lipid Panel 3 Months E11.9 - Type 2 diabetes mellitus without complications, E66.01 - Morbid (severe) obesity due to excess calories Medications: New metformin ER 750 mg PO DAILY 90 tabs 1RF fenofibrate 160 mg PO DAILY 90 tabs 3RF Ozempic (semaglutide) for 4 weeks then 0.5 mg week 0.25 mg (0.368 mL) subcut QWEEK 3 mL 2RF NS
[2024-11-03 10:19] VITALS: BP 120/70; PULSE 92; O2SAT 95; BMI 54.0
== END 2024-11-03 12:17 | disposition home or self-care (01) ==
PROVIDERS: PCP Internal Medicine; Visit Provider Internal Medicine
DX: E11.9 Type 2 diabetes mellitus without complications (principal); E66.01 Morbid (severe) obesity due to excess calories; Z68.43 Body mass index [BMI] 50.0-59.9, adult; R79.89 Other specified abnormal findings of blood chemistry; E78.1 Pure hyperglyceridemia

== ENCOUNTER → 2024-11-03 10:15 | Outpatient (BNVA) | payer OTHER, SELFPAY | PROVIDERS: PCP Internal Medicine; Visit Provider Internal Medicine | DX: E11.9 Type 2 diabetes mellitus without complications (principal); E66.01 Morbid (severe) obesity due to excess calories; Z68.43 Body mass index [BMI] 50.0-59.9, adult; R79.89 Other specified abnormal findings of blood chemistry; E78.1 Pure hyperglyceridemia | CPT/HCPCS: 96127 ==

== ENCOUNTER 2024-11-17 09:45 | Outpatient (REF) | payer OTHER, MEDICAID, SELFPAY ==
--- NOTE | ~2024-11-17 | US_ITS ---
CLINICAL HISTORY: R79.89 - Other specified abnormal findings of blood chemistry US abdomen limited Comparison: None Findings: The visualized pancreas is normal. The aorta and inferior vena cava are normal caliber. The appearance of the liver suggests fatty infiltration without focal lesion. There is no intrahepatic bile duct dilatation. The common duct is 6.2 mm in diameter. There are no abnormal findings in the gallbladder fossa. There is no sonographic Downey sign. The main portal vein is antegrade. The right kidney is 14.8 cm in length. No ascites. IMPRESSION: Hepatic steatosis. This document has been electronically signed by: Christiano Mae MD on 11/18/2024 07:14:42
== END 2024-11-17 09:46 | disposition home or self-care (01) ==
LOC: HO.HMGCX 09:45
PROVIDERS: PCP Internal Medicine; Visit Provider Internal Medicine
DX: R79.89 Other specified abnormal findings of blood chemistry (principal)
CPT/HCPCS: 76705

== ENCOUNTER → 2024-11-17 10:05 | Outpatient (BNV) | payer OTHER, MEDICAID, SELFPAY | PROVIDERS: PCP Internal Medicine; Visit Provider Specialist | DX: R74.01 Elevation of levels of liver transaminase levels (principal) | CPT/HCPCS: 76705 ==